=== PATIENT | male | born 1980 | race Caucasian/White ===

== ENCOUNTER 2018-11-29 16:40 | Emergency (ER) | payer OTHER ==
[~2018-11-29 16:40] MED LIST: AZIT250T6 PO; DIPH25CA58 PO; DULO30CA2 PO; LANS30CA66 PO; LISI-334 PO; LORA2TAB PO; OMEP20CA5 PO; OXYC1TAB8 PO; PRED50TA PO
[2018-11-29] MEDS ORDERED: IV NORMAL SALINE 1,000ML 1,000 ML IV SCH (17:36)
--- NOTE | 2018-11-29 17:43 | PHYS DOC ---
Past History Past Medical History: No Pertinent History (VIDAL RAMIREZ Jr., DO) Past Surgical History: No Surgical History (VIDAL RAMIREZ Jr., DO) Alcohol Use: None Drug Use: None (VIDAL RAMIREZ Jr., DO) Adult General Chief Complaint Chief Complaint: NAUSEA/VOMITING/DIARRHEA HPI HPI Patient is a 38-year-old male who presents with complaint of 4 day history of diarrhea and started having nausea and vomiting this morning. He states that he has not been able to keep anything down and has not eaten anything in the last 2 days. He also complains of upper abdominal pain that he rates at an 8 out of 10 and states that he has diffuse muscle cramps as well. He denies any fever. He indicates that he does not work outdoors in the heat. He states that nothing is improving his symptoms.[] (VIDAL RAMIREZ Jr., DO) Review of Systems Review of Systems Constitutional: Denies fever or chills [] Respiratory: Denies cough or shortness of breath [] Cardiovascular: No additional information not addressed in HPI [] GI: Complains of abdominal pain with vomiting and diarrhea [] Musculoskeletal: Complains of diffuse muscle cramps/pain [] Integument: Denies rash or skin lesions [] Neurologic: Denies headache, focal weakness or sensory changes [] All other systems were reviewed and found to be within normal limits, except as documented in this note. (VIDAL RAMIREZ Jr., DO) Current Medications Current Medications Current Medications Medications (Trade) Dose Ordered Sig/Heladio Start Time Stop Time Status Last Admin Dose Admin Fentanyl Citrate (Fentanyl 2ml Vial) 50 mcg PRN Q15MIN PRN 11/29/18 17:45 11/30/18 17:44 UNV Ondansetron HCl (Zofran) 4 mg 1X ONCE 11/29/18 17:45 11/29/18 17:46 UNV Sodium Chloride 1,000 ml @ 1,000 mls/hr Q1H 11/29/18 17:36 11/29/18 18:35 UNV (VIDAL RAMIREZ Jr., DO) Allergies Allergies Allergies Coded Allergies Type Severity Reaction Last Updated Verified Sulfa (Sulfonamide Antibiotics) Allergy Severe SWELLING 03/26/15 Yes codeine Allergy Severe SWELLING 03/26/15 Yes (VIDAL RAMIREZ Jr., DO) Physical Exam Physical Exam Constitutional: Well developed, well nourished, appears uncomfortable. [] HENT: Normocephalic, atraumatic, bilateral external ears normal, oropharynx moist, no oral exudates, nose normal. [] Eyes: PERRLA, EOMI, conjunctiva normal, no discharge. [] Neck: Normal range of motion, no tenderness, supple, no stridor. [] Cardiovascular:Heart rate regular rhythm, no murmur [] Lungs & Thorax: Bilateral breath sounds clear to auscultation [] Abdomen: Bowel sounds normal, soft, with right upper quadrant tenderness. [] Skin: Warm, dry, no erythema, no rash. [] Extremities: No tenderness, no cyanosis, no clubbing, ROM intact. [] Neurologic: Alert and oriented X 3, no focal deficits noted. [] (VIDAL RAMIREZ Jr., DO) Current Patient Data Vital Signs Vital Signs Date Time Temp Pulse Resp B/P (MAP) Pulse Ox O2 Delivery O2 Flow Rate FiO2 11/29/18 17:02 97.9 78 18 99 Room Air (VIDAL RAMIREZ Jr., DO) EKG EKG [] (VIDAL RAMIREZ Jr., DO) Radiology/Procedures Radiology/Procedures [] (VIDAL RAMIREZ Jr., DO) Radiology/[place] [address] IMAGING REPORT Signed PATIENT: JD BURCH ACCOUNT: [id number] : 1980 LOCATION: ER AGE: 38 SEX: M EXAM STATUS: REG ER ORD. PHYSICIAN: VIDAL RAMIREZ Jr., DO REASON: RUQ PAIN PROCEDURE: ABDOMEN LTD Right upper quadrant abdominal ultrasound History: Right upper quadrant pain x4 days. Comparison: None. Technique: Transabdominal ultrasound images are obtained. Findings: Pancreas head is homogeneous. Pancreas otherwise obscured due to overlying bowel gas. Liver is increased in echogenicity and there is decreased through-transmission. Right hepatic lobe measures 19.5 cm. Portal flow is hepatopedal. Gallbladder has an unremarkable appearance. Common bile duct caliber is normal measuring 2 mm in diameter. The right kidney measures 10.8 cm in length. There is no hydronephrosis. Cortical echotexture is normal. IVC is obscured due to overlying bowel gas and patient body habitus. IMPRESSION: 1. Hepatomegaly. Moderate fatty infiltration of the liver. 2. The gallbladder is normal. Electronically signed by: Miguel Hays MD (11/29/2018 7:15 PM) [facility] DICTATED AND SIGNED BY: MIGUEL HAYS MD DATE: 11/29/181914 CC: VIDAL RAMIREZ Jr. DO; TARIQ HARRISON MD; MARIAJOSE BELL FERTILIZER PROCESSING SUPERVISOR ~ [address] [address] IMAGING REPORT Signed PATIENT: JD BURCH ACCOUNT: [id number] : 1980 LOCATION: ER AGE: 38 SEX: M EXAM STATUS: REG ER ORD. PHYSICIAN: TARIQ HARRISON MD REASON: Dpmd576,75ml IV.Omni 240,30ml PO.Abd pain,N/V/D PROCEDURE: CT ABD PELV W/ORAL&IV CONTRAST Exam: CT abdomen and pelvis with contrast INDICATION: Abdominal pain TECHNIQUE: Sequential axial images through the abdomen and pelvis obtained following the administration of 75 mL of Omni 300 IV contrast. Sagittal and coronal reformatted images were reconstructed from the axial data and reviewed. Comparisons: None FINDINGS: Heart size is normal. No pericardial effusion. Visualized lung bases are clear. No pleural effusion. Diffuse decreased attenuation of the liver. Otherwise, liver, spleen, pancreas, gallbladder and adrenals are unremarkable. Kidneys demonstrate symmetric enhancement. No perinephric inflammation or hydronephrosis. No renal or ureteral calculi are identified. Bladder is distended and appears normal. Prostate is not enlarged. Large and small bowel are unremarkable. No obstruction. No free intra-abdominal air or fluid. Appendix is normal. Abdominal aorta has a normal course and caliber. Abdominal vasculature is patent. No suspicious osseous lesions or acute fractures. IMPRESSION: 1. No acute process identified within the abdomen or pelvis. 2. Diffuse hepatic steatosis. Exposure: One or more of the following in the visualized dose reduction techniques were utilized for this examination: 1. Automated exposure control 2. Adjustment of the MA and/or KV according to patient size 3. Use of iterative of reconstructive technique Electronically signed by: Nacho Pendleton MD (11/29/2018 11:06 PM) [facility] [place] DICTATED AND SIGNED BY: NACHO PENDLETON MD DATE: 11/29/182305 CC: TARIQ HARRISON MD; MARIAJOSE BELL F[employer]IL[employer]ER PROCESSING SUPERVISOR ~ Impressions: 1. N/V/Diarrhe- acute gastroenteritis 2. Fever 3. Mild Elevation of AST 42/Alkphos 121 4. Dehydration 5. Bronchitis (TARIQ HARRISON MD) Course & Med Decision Making Course & Med Decision Making Pertinent Labs and Imaging studies reviewed. (See chart for details) Patient moved to room upon arrival was evaluated by ER medical staff after which workup was initiated to include blood work and gallbladder ultrasound. Patient given IV fluids as well as pain and nausea medication. At this time, patient's workup is pending and patient is being signed out to Dr. Harrison at 6:00 PM. (VIDAL RAMIREZ Jr. DO) Course & Med Decision Making Re-exam some bilateral basilar crackles and rhonchi on right. Abd. mild generalized tenderness. Hyperactive bowel sounds. Pt. feel much better after liter of fluids. Requesting discharge. Decline further labs and radiographs at this time. Pt. to return if any concerns. Pt. stay on clear fluid diet. Doxycycline 100 bid. Zofran for nausea and vomiting. Follow up with primary. Tylenol and Ibuprofen for feve and discomfort. Return if any concerns. Just at discharge pt. stated his pain was coming back and just as severe as ever. Will obtain a CT of abd. No surgical pathology on CT. Pt. to follow up with primary. Take meds as directed. Clear fluid diet. Follow pending labs. Return if any concerns. (TARIQ HARRISON MD) Dragon Disclaimer Dragon Disclaimer This electronic medical record was generated, in whole or in part, using a voice recognition dictation system. (VIDAL RAMIREZ Jr. DO) Departure Departure: Disposition: 01 HOME/RESIDENCE PRIOR TO ADM Condition: STABLE Referrals: MARIAJOSE BELL FERTILIZER PROCESSING SUPERVISOR (PCP) Scripts Sucralfate (CARAFATE) 1 Gm Tablet 1 GM PO QID for gastritis for 30 Days, #120 TAB Prov: TARIQ HARRISON MD 11/30/18 Ranitidine Hcl (ZANTAC) 150 Mg Tablet 150 MG PO BID for gerd, gastritis, #120 TAB Prov: TARIQ HARRISON MD 11/30/18 Ibuprofen (IBUPROFEN) 400 Mg Tablet 400 MG PO QIDPRN PRN for fever and discomfort, #120 TAB Prov: TARIQ HARRISON MD 11/29/18 Ondansetron Hcl (ZOFRAN) 8 Mg Tablet 8 MG PO QIDPRN PRN for NAUSEA/VOMITING, #30 BOTTLE Prov: TARIQ HARRISON MD 11/29/18 Doxycycline Hyclate (DOXYCYCLINE HYCLATE) 100 Mg Tablet.dr 100 MG PO BID for fever for 14 Days, #28 TAB Prov: TARIQ HARRISON MD 11/29/18 Dragon Disclaimer This chart was dictated in whole or in part using Voice Recognition software in a busy, high-work load, and often noisy Emergency Department environment. It may contain unintended and wholly unrecognized errors or omissions. (TARIQ HARRISON MD) VIDAL RAMIREZ Jr. DO Nov 29, 2018 17:43 TARIQ HARRISON MD Nov 29, 2018 20:26
[2018-11-29 18:14] LABS: BASO # 0.1 x10^3/uL (0.0-0.2); BASO % 1 % (0-3); EOS # 0.2 x10^3/uL (0.0-0.7); EOS % 2 % (0-3); HEMOGLOBIN 14.9 g/dL (13.0-17.5); LYMPH # 2.4 x10^3/uL (1.0-4.8); LYMPH % 28 % (24-48); MEAN CORPUSCULAR HEMOGLOBIN 29 pg (25-35); MEAN CORPUSCULAR HGB CONC 33 g/dL (31-37); MEAN CORPUSCULAR VOLUME 87 fL (79-100); MONO # 0.8 x10^3/uL (0.0-1.1); MONO % 9 % (0-9); NEUT # 5.1 x10^3uL (1.8-7.7); NEUT % 60 % (31-73); PLATELET COUNT 263 x10^3/uL (140-400); RED BLOOD COUNT 5.15 x10^6/uL (4.30-5.70); RED CELL DISTRIBUTION WIDTH 13.1 % (11.5-14.5); WHITE BLOOD COUNT 8.5 x10^3/uL (4.0-11.0)
[2018-11-29] MEDS ORDERED: ONDANSETRON PF 4 MG/2 ML VIAL. IV ONE ×2 (18:15→21:15)
[2018-11-29 18:34] LABS: ALBUMIN 3.7 g/dL (3.4-5.0); ALBUMIN/GLOBULIN RATIO 0.8 (1.0-1.7); CALCIUM 9.5 mg/dL (8.5-10.1); CREATININE 1.1 mg/dL (0.7-1.3); GFR 74.9; POTASSIUM 4.2 mmol/L (3.5-5.1); TOTAL BILIRUBIN 0.3 mg/dL (0.2-1.0); TOTAL PROTEIN 8.1 g/dL (6.4-8.2)
[2018-11-29 19:10] VITALS: BP 102/62
[2018-11-29] MEDS ORDERED: DOXY100T9 PO (19:10)
[2018-11-29] MEDS ORDERED: ONDA8TAB9 PO (19:12)
[2018-11-29] MEDS ORDERED: IBUP400T18 PO (19:12)
--- NOTE | 2018-11-29 19:18 | RAD ---
Right upper quadrant abdominal ultrasound History: Right upper quadrant pain x4 days. Comparison: None. Technique: Transabdominal ultrasound images are obtained. Findings: Pancreas head is homogeneous. Pancreas otherwise obscured due to overlying bowel gas. Liver is increased in echogenicity and there is decreased through-transmission. Right hepatic lobe measures 19.5 cm. Portal flow is hepatopedal. Gallbladder has an unremarkable appearance. Common bile duct caliber is normal measuring 2 mm in diameter. The right kidney measures 10.8 cm in length. There is no hydronephrosis. Cortical echotexture is normal. IVC is obscured due to overlying bowel gas and patient body habitus. IMPRESSION: 1. Hepatomegaly. Moderate fatty infiltration of the liver. 2. The gallbladder is normal. Electronically signed by: Miguel Hays MD (11/29/2018 7:15 PM) [facility]
[2018-11-29 20:09] LABS: CLARITY,URINE CLEAR; COLOR,URINE AMBER
[2018-11-29 20:10] LABS: BACTERIA,URINE 0 /HPF (0-FEW); BILIRUBIN,URINE NEG (NEG); GLUCOSE,URINE NEG (NEG); NITRITE,URINE NEG (NEG); RBC,URINE OCC /HPF (0-2); SQUAMOUS EPITHELIAL CELL,UR FEW /LPF; UROBILINOGEN,URINE 0.2 mg/dL (0.2 mg/dL); WBC,URINE OCC /HPF (0-4)
[2018-11-29] MEDS ORDERED: MORPHINE SULFATE 10 MG/ML SYRINGE. SQ ONE ×2 (20:45→22:30)
[2018-11-29] MEDS ORDERED: IV RINGERS SOLUTION,LACTATED 1,000 ML IV ONE (20:45)
[2018-11-29] MEDS ORDERED: IOHEXOL 240 MG/ML 50ML VIAL. PO ONE (21:00)
[2018-11-29] MEDS ORDERED: IOHEXOL 300 MG/ML 75 ML VIAL. IV ONE (21:00)
[2018-11-29] MEDS ORDERED: CONTRAST GIVEN MC PRN (21:15)
--- NOTE | 2018-11-29 21:52 | RAD ---
Exam: Acute abdominal series INDICATION: Pain TECHNIQUE: Upright and supine views of the abdomen Comparisons: None FINDINGS: There is stool are seen throughout the colon to the level of the rectum in a nonobstructive bowel gas pattern. No free air. No suspicious masses or calcifications. Visualized osseous structures are unremarkable. IMPRESSION: Nonobstructive bowel gas pattern. Electronically signed by: Nacho Golden MD (11/29/2018 9:49 PM) [facility]
--- NOTE | 2018-11-29 23:09 | RAD ---
Exam: CT abdomen and pelvis with contrast INDICATION: Abdominal pain TECHNIQUE: Sequential axial images through the abdomen and pelvis obtained following the administration of 75 mL of Omni 300 IV contrast. Sagittal and coronal reformatted images were reconstructed from the axial data and reviewed. Comparisons: None FINDINGS: Heart size is normal. No pericardial effusion. Visualized lung bases are clear. No pleural effusion. Diffuse decreased attenuation of the liver. Otherwise, liver, spleen, pancreas, gallbladder and adrenals are unremarkable. Kidneys demonstrate symmetric enhancement. No perinephric inflammation or hydronephrosis. No renal or ureteral calculi are identified. Bladder is distended and appears normal. Prostate is not enlarged. Large and small bowel are unremarkable. No obstruction. No free intra-abdominal air or fluid. Appendix is normal. Abdominal aorta has a normal course and caliber. Abdominal vasculature is patent. No suspicious osseous lesions or acute fractures. IMPRESSION: 1. No acute process identified within the abdomen or pelvis. 2. Diffuse hepatic steatosis. Exposure: One or more of the following in the visualized dose reduction techniques were utilized for this examination: 1. Automated exposure control 2. Adjustment of the MA and/or KV according to patient size 3. Use of iterative of reconstructive technique Electronically signed by: Nacho Golden MD (11/29/2018 11:06 PM) [facility]
[2018-11-30] MEDS ORDERED: FAMOTIDINE 20 MG/2 ML VIAL IVP ONE (00:15)
[2018-11-30] MEDS ORDERED: SUCR1TAB35 PO (00:15)
[2018-11-30] MEDS ORDERED: RANI-376 PO (00:15)
== END 2018-11-30 00:18 | disposition home or self-care (01) ==
LOC: ER 16:40
DX: K52.9 Noninfective gastroenteritis and colitis, unspecified (principal); E86.0 Dehydration; J40 Bronchitis, not specified as acute or chronic; R74.8 Abnormal levels of other serum enzymes; Z88.2 Allergy status to sulfonamides; Z88.5 Allergy status to narcotic agent
CPT/HCPCS: 36415; 74022; 74177; 76705; 80053; 81001; 82150; 82550; 83690; 84484; 85025; 86705; 86709; 86803; 87340; 93005; 96361; 96372; 96374; 96375; 96376; 99285; J2270; J2405; J3010; J7120; Q9966; Q9967; J7030

== ENCOUNTER 2018-12-02 17:47 | Emergency (ER) | payer OTHER ==
[~2018-12-02] VITALS: Ht 167.6 cm; Wt 141.8 kg
[~2018-12-02 17:47] MED LIST changes: +DOXY100T9 PO; +IBUP400T18 PO; +ONDA8TAB9 PO; +RANI-376 PO; +SUCR1TAB35 PO
[2018-12-02] MEDS ORDERED: IV NORMAL SALINE 1,000ML 1,000 ML IV SCH (18:10)
[2018-12-02] MEDS ORDERED: ONDANSETRON PF 4 MG/2 ML VIAL. IV ONE (18:45)
[2018-12-02 18:54] LABS: BASO # 0.1 x10^3/uL (0.0-0.2); BASO % 1 % (0-3); EOS # 0.2 x10^3/uL (0.0-0.7); EOS % 2 % (0-3); HEMATOCRIT 41.5 % (39.0-53.0); HEMOGLOBIN 14.1 g/dL (13.0-17.5); LYMPH # 2.2 x10^3/uL (1.0-4.8); LYMPH % 24 % (24-48); MEAN CORPUSCULAR HEMOGLOBIN 30 pg (25-35); MEAN CORPUSCULAR HGB CONC 34 g/dL (31-37); MEAN CORPUSCULAR VOLUME 87 fL (79-100); MONO # 0.7 x10^3/uL (0.0-1.1); MONO % 8 % (0-9); NEUT % 65 % (31-73); PLATELET COUNT 224 x10^3/uL (140-400); RED BLOOD COUNT 4.75 x10^6/uL (4.30-5.70); RED CELL DISTRIBUTION WIDTH 13.2 % (11.5-14.5); WHITE BLOOD COUNT 9.2 x10^3/uL (4.0-11.0)
[2018-12-02 19:05] LABS: ALBUMIN 3.5 g/dL (3.4-5.0); ALBUMIN/GLOBULIN RATIO 0.9 (1.0-1.7); CALCIUM 9.4 mg/dL (8.5-10.1); CREATININE 1.3 mg/dL (0.7-1.3); GFR 61.8; TOTAL BILIRUBIN 0.2 mg/dL (0.2-1.0); TOTAL PROTEIN 7.6 g/dL (6.4-8.2)
[2018-12-02] MEDS ORDERED: IV NORMAL SALINE 1,000ML 1,000 ML IV ONE (19:45)
[2018-12-02] MEDS ORDERED: IOHEXOL 300 MG/ML 75 ML VIAL. IV ONE (19:45)
--- NOTE | 2018-12-02 20:35 | RAD ---
CT abdomen and pelvis with contrast PQRS statement: CT scans at this facility use dose reduction including either automated exposure control, iterative reconstructions, and /or weight based radiation dosing via mA and kV modification when appropriate to reduce radiation dose to as low as reasonably achievable. HISTORY: Upper abdominal pain, nausea and vomiting. TECHNIQUE: Helical CT imaging of the abdomen and pelvis was acquired with oral contrast and 100 mL Isovue-370 intravenous contrast. COMPARISON: CT abdomen and pelvis November 29, 2018. Abdomen findings: Chronic bilateral L5 spondylolysis with sclerotic bony margins. L5-S1 disc bulge. Hypodense liver likely steatosis with probable sparing at gallbladder fossa. Gallbladder, pancreas, spleen, adrenal glands and kidneys are unremarkable. Appendix is negative. No obstruction or inflammatory change of the GI tract. No abdominal fluid or adenopathy. Pelvis findings: Bladder, prostate, rectum and bones are unremarkable. IMPRESSION: No acute process. Appendix is negative. Electronically signed by: Kane Howard MD (12/02/2018 8:32 PM) [facility]
[2018-12-02 21:38] LABS: BACTERIA,URINE 0 /HPF (0-FEW); BILIRUBIN,URINE NEG (NEG); CLARITY,URINE CLEAR; COLOR,URINE YELLOW; GLUCOSE,URINE NEG (NEG); HYALINE CASTS, URINE OCC /HPF; NITRITE,URINE NEG (NEG); RBC,URINE 0 /HPF (0-2); SQUAMOUS EPITHELIAL CELL,UR OCC /LPF; UROBILINOGEN,URINE 1 mg/dL (0.2 mg/dL); WBC,URINE OCC /HPF (0-4)
[2018-12-02] MEDS ORDERED: ONDA4TAB7 PO (22:03)
[2018-12-02] MEDS ORDERED: DICY20TA3 PO (22:03)
--- NOTE | 2018-12-02 22:03 | PHYS DOC ---
Past History Past Medical History: Other Past Surgical History: Other Alcohol Use: None Drug Use: None Adult General Chief Complaint Chief Complaint: ABDOMINAL PAIN HPI HPI Patient is a 38-year-old male who presents with continued abdominal pain. Patient was seen here on Saturday for same complaint and had CT and ultrasound performed. Patient states that pain is getting worse and right now is localized in his upper abdomen. He reports to having some nausea and vomiting. He denies any diarrhea. He rates pain currently at an 8 out of 10. He denies any radiation of the pain.[] Review of Systems Review of Systems Constitutional: Denies fever or chills [] Respiratory: Denies cough or shortness of breath [] Cardiovascular: No additional information not addressed in HPI [] GI: Complains of abdominal pain with nausea and vomiting. Denies diarrhea [] Integument: Denies rash or skin lesions [] Neurologic: Denies headache, focal weakness or sensory changes [] All other systems were reviewed and found to be within normal limits, except as documented in this note. Current Medications Current Medications Current Medications Medications (Trade) Dose Ordered Sig/Heladio Start Time Stop Time Status Last Admin Dose Admin Fentanyl Citrate (Fentanyl 2ml Vial) 50 mcg PRN Q15MIN PRN 12/02/18 18:15 12/03/18 18:14 12/02/18 19:49 50 MCG Iohexol (Omnipaque 300 Mg/ml) 75 ml 1X ONCE 12/02/18 19:45 12/02/18 19:46 DC 12/02/18 20:13 75 ML Ondansetron HCl (Zofran) 4 mg 1X ONCE 12/02/18 18:45 12/02/18 18:46 DC 12/02/18 18:48 4 MG Sodium Chloride 1,000 ml @ 1,000 mls/hr 1X ONCE 12/02/18 19:45 12/02/18 20:44 DC 12/02/18 19:49 1,000 MLS/HR Allergies Allergies Allergies Coded Allergies Type Severity Reaction Last Updated Verified Sulfa (Sulfonamide Antibiotics) Allergy Severe SWELLING 12/02/18 Yes codeine Allergy Severe SWELLING 12/02/18 Yes peanut Allergy Unknown 12/02/18 Yes Physical Exam Physical Exam Constitutional: Well developed, well nourished, no acute distress, non-toxic appearance. [] HENT: Normocephalic, atraumatic, bilateral external ears normal, oropharynx moist, no oral exudates, nose normal. [] Eyes: PERRLA, EOMI, conjunctiva normal, no discharge. [] Neck: Normal range of motion, no tenderness, supple, no stridor. [] Cardiovascular:Heart rate regular rhythm [] Lungs & Thorax: Bilateral breath sounds clear to auscultation [] Abdomen: Bowel sounds normal, soft, with epigastric tenderness. [] Skin: Warm, dry, no erythema, no rash. [] Extremities: No tenderness, no cyanosis, no clubbing, ROM intact. [] Neurologic: Alert and oriented X 3, no focal deficits noted. [] Current Patient Data Vital Signs Vital Signs Date Time Temp Pulse Resp B/P (MAP) Pulse Ox O2 Delivery O2 Flow Rate FiO2 12/02/18 20:50 63 16 122/73 (89) 97 Room Air 12/02/18 17:53 97.9 Lab Results Laboratory Tests Test 12/02/18 18:30 12/02/18 21:05 White Blood Count 9.2 x10^3/uL (4.0-11.0) Red Blood Count 4.75 x10^6/uL (4.30-5.70) Hemoglobin 14.1 g/dL (13.0-17.5) Hematocrit 41.5 % (39.0-53.0) Mean Corpuscular Volume 87 fL (79-100) Mean Corpuscular Hemoglobin 30 pg (25-35) Mean Corpuscular Hemoglobin Concent 34 g/dL (31-37) Red Cell Distribution Width 13.2 % (11.5-14.5) Platelet Count 224 x10^3/uL (140-400) Neutrophils (%) (Auto) 65 % (31-73) Lymphocytes (%) (Auto) 24 % (24-48) Monocytes (%) (Auto) 8 % (0-9) Eosinophils (%) (Auto) 2 % (0-3) Basophils (%) (Auto) 1 % (0-3) Neutrophils # (Auto) 6.0 x10^3uL (1.8-7.7) Lymphocytes # (Auto) 2.2 x10^3/uL (1.0-4.8) Monocytes # (Auto) 0.7 x10^3/uL (0.0-1.1) Eosinophils # (Auto) 0.2 x10^3/uL (0.0-0.7) Basophils # (Auto) 0.1 x10^3/uL (0.0-0.2) Sodium Level 138 mmol/L (136-145) Potassium Level 4.0 mmol/L (3.5-5.1) Chloride Level 102 mmol/L (98-107) Carbon Dioxide Level 27 mmol/L (21-32) Anion Gap 9 (6-14) Blood Urea Nitrogen 9 mg/dL (8-26) Creatinine 1.3 mg/dL (0.7-1.3) Estimated GFR (Cockcroft-Gault) 61.8 BUN/Creatinine Ratio 7 (6-20) Glucose Level 148 mg/dL (70-99) H Calcium Level 9.4 mg/dL (8.5-10.1) Total Bilirubin 0.2 mg/dL (0.2-1.0) Aspartate Amino Transferase (AST) 30 U/L (15-37) Alanine Aminotransferase (ALT) 46 U/L (16-63) Alkaline Phosphatase 112 U/L (46-116) Creatine Kinase 127 U/L (39-308) Total Protein 7.6 g/dL (6.4-8.2) Albumin 3.5 g/dL (3.4-5.0) Albumin/Globulin Ratio 0.9 (1.0-1.7) L Lipase 127 U/L (73-393) Urine Collection Type Unknown Urine Color Yellow Urine Clarity Clear Urine pH 6.0 Urine Specific [place] 1.015 Urine Protein 30 mg/dl (NEG-TRACE) Urine Glucose (UA) Neg mg/dL (NEG) Urine Ketones (Stick) Neg mg/dL (NEG) Urine Blood Trace (NEG) Urine Nitrite Neg (NEG) Urine Bilirubin Neg (NEG) Urine Urobilinogen Dipstick 1 mg/dL (0.2 mg/dL) Urine Leukocyte Esterase Neg (NEG) Urine RBC 0 /HPF (0-2) Urine WBC Occ /HPF (0-4) Urine Squamous Epithelial Cells Occ /LPF Urine Bacteria 0 /HPF (0-FEW) Urine Hyaline Casts Occ /HPF Urine Mucus Mod /LPF EKG EKG [] Radiology/Procedures Radiology/Procedures [] Impressions: PROCEDURE: CT ABD PELV W/ IV CONTRST ONLY CT abdomen and pelvis with contrast PQRS statement: CT scans at this facility use dose reduction including either automated exposure control, iterative reconstructions, and /or weight based radiation dosing via mA and kV modification when appropriate to reduce radiation dose to as low as reasonably achievable. HISTORY: Upper abdominal pain, nausea and vomiting. TECHNIQUE: Helical CT imaging of the abdomen and pelvis was acquired with oral contrast and 100 mL Isovue-370 intravenous contrast. COMPARISON: CT abdomen and pelvis November 29, 2018. Abdomen findings: Chronic bilateral L5 spondylolysis with sclerotic bony margins. L5-S1 disc bulge. Hypodense liver likely steatosis with probable sparing at gallbladder fossa. Gallbladder, pancreas, spleen, adrenal glands and kidneys are unremarkable. Appendix is negative. No obstruction or inflammatory change of the GI tract. No abdominal fluid or adenopathy. Pelvis findings: Bladder, prostate, rectum and bones are unremarkable. IMPRESSION: No acute process. Appendix is negative. Electronically signed by: Kane Howard MD (12/02/2018 8:32 PM) [facility] Course & Med Decision Making Course & Med Decision Making Pertinent Labs and Imaging studies reviewed. (See chart for details) [] Dragon Disclaimer Dragon Disclaimer This electronic medical record was generated, in whole or in part, using a voice recognition dictation system. Departure Departure: Impression: Primary Impression: Abdominal pain Disposition: 01 HOME, SELF-CARE Condition: STABLE Referrals: MARIAJOSE BELL AWAKE OVERNIGHT MONITOR (PCP) Patient Instructions: Abdominal Pain Scripts Ondansetron Hcl (ZOFRAN) 4 Mg Tablet 4 MG PO Q6HRS PRN for NAUSEA, #12 TAB Prov: VIDAL RAMIREZ Jr. DO 12/02/18 Dicyclomine Hcl (DICYCLOMINE HCL) 20 Mg Tablet 1 TAB PO TID PRN for ABDOMINAL PAIN, #15 TAB Prov: VIDAL RAMIREZ Jr. DO 12/02/18 Problem Qualifiers Primary Impression: Abdominal pain Abdominal location: upper abdomen, unspecified Qualified Codes: R10.10 - Upper abdominal pain, unspecified VIDAL RAMIREZ Jr. DO Dec 02, 2018 22:03
[2018-12-02 22:15] VITALS: BP 118/57
== END 2018-12-02 22:16 | disposition home or self-care (01) ==
LOC: ER 17:47
DX: R10.10 Upper abdominal pain, unspecified (principal); R10.13 Epigastric pain; R11.2 Nausea with vomiting, unspecified; Z88.2 Allergy status to sulfonamides; Z88.5 Allergy status to narcotic agent; Z91.010 Allergy to peanuts
CPT/HCPCS: 36415; 74177; 80053; 81001; 82550; 83690; 85025; 96361; 96374; 96375; 99285; J2405; J3010; Q9967; J7030

== ENCOUNTER 2019-01-21 20:39 | Emergency (ER) | payer OTHER ==
[~2019-01-21] VITALS: Ht 167.6 cm; Wt 140.2 kg
[~2019-01-21 20:39] MED LIST changes: +DICY20TA3 PO; +DOXY-96 PO; -DOXY100T9 PO; +ONDA4TAB7 PO
--- NOTE | 2019-01-21 20:44 | ED.ADGEN ---
Past History Past Medical History: Other Past Surgical History: Other Alcohol Use: None Drug Use: None Adult General Chief Complaint Chief Complaint "I had so much diarrhea... 4 days. Now my stomach is cramping and I think I am dehydrated some not urinating..." HPI HPI Patient is a 38 year old male who presents with above hx and complaints abdomen pain and diarrhea. Patient's had at least 4 stools per day. They have been watery. He recently turned dark was taking of Pepto-Bismol to control the diarrhea. No recent travel. No specific ill contacts. No exotic pets. No handling of to reptiles. No ill contacts. Not been on antibiotics recently. No history of travel. Questionable bad food at Saturday 4 days ago. Review of Systems Review of Systems Constitutional: Denies fever or chills [] Eyes: Denies change in visual acuity, redness, or eye pain [] HENT: Denies nasal congestion or sore throat [] Respiratory: Denies cough or shortness of breath [] Cardiovascular: No additional information not addressed in HPI [] GI: Complains of generalized abdominal pain, nausea, watery diarrhea [] : Denies dysuria or hematuria [] Musculoskeletal: Denies back pain or joint pain [] Integument: Denies rash or skin lesions [] Neurologic: Denies headache, focal weakness or sensory changes [] Endocrine: Denies polyuria or polydipsia [] All other systems were reviewed and found to be within normal limits, except as documented in this note. Family History Family History Aunt has Crohn's Current Medications Current Medications Current Medications Medications (Trade) Dose Ordered Sig/Heladio Start Time Stop Time Status Last Admin Dose Admin Famotidine (Pepcid Vial) 20 mg 1X ONCE 01/21/19 21:30 01/21/19 21:33 DC 01/21/19 21:30 20 MG Ketorolac Tromethamine (Toradol 30mg Vial) 30 mg 1X ONCE 01/21/19 21:30 01/21/19 21:33 DC 01/21/19 21:45 30 MG Lactated Ringer's 1,000 ml @ 0 mls/hr 1X ONCE 01/22/19 00:30 01/22/19 00:15 DC 01/21/19 23:29 1,000 MLS/HR Morphine Sulfate (Morphine 10mg Syringe) 10 mg 1X ONCE 01/21/19 22:45 01/21/19 22:56 DC 01/21/19 23:01 10 MG Ondansetron HCl (Zofran) 8 mg 1X ONCE 01/21/19 21:30 01/21/19 21:33 DC 01/21/19 21:45 8 MG Allergies Allergies Allergies Coded Allergies Type Severity Reaction Last Updated Verified Sulfa (Sulfonamide Antibiotics) Allergy Severe SWELLING 12/02/18 Yes codeine Allergy Severe SWELLING 12/02/18 Yes peanut Allergy Unknown 12/02/18 Yes Physical Exam Physical Exam Constitutional: Moderate acute distress, non-toxic appearance. [] HENT: Normocephalic, atraumatic, bilateral external ears normal, oropharynx moist, no oral exudates, nose normal. [] Eyes: PERRLA, EOMI, conjunctiva normal, no discharge. [] Neck: Normal range of motion, no tenderness, supple, no stridor. [] Cardiovascular:Heart rate regular rhythm, no murmur [] Lungs & Thorax: Bilateral breath sounds clear to auscultation [] Abdomen: Bowel sounds hyperactive, soft, generalized tenderness, no masses, no pulsatile masses. [] No focal areas on rebound. Morbidly obese Skin: Warm, dry, no erythema, no rash. [] Back: No tenderness, no CVA tenderness. [] Extremities: No tenderness, no cyanosis, no clubbing, ROM intact, no edema. [] No psoas sign. Neurologic: Alert and oriented X 3, normal motor function, normal sensory function, no focal deficits noted. [] Psychologic: Affect anxious, judgement normal, mood normal. [] Current Patient Data Vital Signs Vital Signs Date Time Temp Pulse Resp B/P (MAP) Pulse Ox O2 Delivery O2 Flow Rate FiO2 01/21/19 23:01 18 96 Room Air 01/21/19 20:52 97.7 79 Lab Results Laboratory Tests Test 01/21/19 21:00 01/21/19 23:15 White Blood Count 8.5 x10^3/uL (4.0-11.0) Red Blood Count 4.75 x10^6/uL (4.30-5.70) Hemoglobin 14.0 g/dL (13.0-17.5) Hematocrit 41.9 % (39.0-53.0) Mean Corpuscular Volume 88 fL (79-100) Mean Corpuscular Hemoglobin 30 pg (25-35) Mean Corpuscular Hemoglobin Concent 33 g/dL (31-37) Red Cell Distribution Width 13.3 % (11.5-14.5) Platelet Count 223 x10^3/uL (140-400) Neutrophils (%) (Auto) 70 % (31-73) Lymphocytes (%) (Auto) 22 % (24-48) L Monocytes (%) (Auto) 6 % (0-9) Eosinophils (%) (Auto) 3 % (0-3) Basophils (%) (Auto) 0 % (0-3) Neutrophils # (Auto) 5.9 x10^3uL (1.8-7.7) Lymphocytes # (Auto) 1.9 x10^3/uL (1.0-4.8) Monocytes # (Auto) 0.5 x10^3/uL (0.0-1.1) Eosinophils # (Auto) 0.2 x10^3/uL (0.0-0.7) Basophils # (Auto) 0.0 x10^3/uL (0.0-0.2) Prothrombin Time 10.4 SEC (9.4-11.4) Prothrombin Time INR 1.0 (0.9-1.1) Activated Partial Thromboplast Time 31 SEC (23-33) Sodium Level 138 mmol/L (136-145) Potassium Level 3.9 mmol/L (3.5-5.1) Chloride Level 101 mmol/L (98-107) Carbon Dioxide Level 29 mmol/L (21-32) Anion Gap 8 (6-14) Blood Urea Nitrogen 10 mg/dL (8-26) Creatinine 1.1 mg/dL (0.7-1.3) Estimated GFR (Cockcroft-Gault) 74.9 Glucose Level 213 mg/dL (70-99) H Calcium Level 9.0 mg/dL (8.5-10.1) Total Bilirubin 0.3 mg/dL (0.2-1.0) Direct Bilirubin 0.1 mg/dL (0.0-0.2) Aspartate Amino Transferase (AST) 29 U/L (15-37) Alanine Aminotransferase (ALT) 42 U/L (16-63) Alkaline Phosphatase 111 U/L (46-116) Creatine Kinase 93 U/L (39-308) Total Protein 7.5 g/dL (6.4-8.2) Albumin 3.3 g/dL (3.4-5.0) L Amylase Level 35 U/L (25-115) Lipase 108 U/L (73-393) Urine Collection Type Unknown Urine Color Yellow Urine Clarity Clear Urine pH 5.5 Urine Specific [place] 1.025 Urine Protein Neg (NEG-TRACE) Urine Glucose (UA) Neg mg/dL (NEG) Urine Ketones (Stick) Neg mg/dL (NEG) Urine Blood Neg (NEG) Urine Nitrite Neg (NEG) Urine Bilirubin Neg (NEG) Urine Urobilinogen Dipstick 1 mg/dL (0.2 mg/dL) Urine Leukocyte Esterase Neg (NEG) Urine RBC 0 /HPF (0-2) Urine WBC Occ /HPF (0-4) Urine Squamous Epithelial Cells None /LPF Urine Bacteria 0 /HPF (0-FEW) EKG EKG [] Radiology/Procedures Radiology/Procedures [][address] [address] IMAGING REPORT Signed PATIENT: JD BURCH ACCOUNT: [id number] : 1980 LOCATION: ER AGE: 38 SEX: M EXAM STATUS: REG ER ORD. PHYSICIAN: TARIQ CALVILLO MD REASON: Abdomen pain PROCEDURE: ACUTE ABDOMEN SERIES Acute Abdominal Series: Technique: PA view of the chest and supine and upright views of the abdomen were obtained. History: Pain. Comparison: None. Findings: The lungs and pleural margins are clear. The bowel gas pattern appears normal. There is no free air. Impression: Radiographically normal acute abdominal series. Electronically signed by: Ricci Roberts III, MD (01/21/2019 10:56 PM) [facility] DICTATED AND SIGNED BY: RICCI ROBERTS III, MD DATE: 01/21/19 0678 CC: TARIQ CALVILLO MD; MARIAJOSE BELL NP ~ Course & Med Decision Making Course & Med Decision Making Pertinent Labs and Imaging studies reviewed. (See chart for details). Clear fluid diet only. No solid no milk products. Must remain on a clear fluid diet for 48 hours. Follow-up primary care. Return if any concerns. Zofran for nausea and vomiting. Vicoprofen for marked discomfort. Take Tylenol and ibu profen. Return for reexam if no improvement. Follow-up primary care. [] Final Impression Final Impression 1. Viral Syndrome 2. Diarrhea 3. Abdomen Pain 4. DM glucose []= 213 5. Dehydration Dragon Disclaimer Dragon Disclaimer This electronic medical record was generated, in whole or in part, using a voice recognition dictation system. Dragon Disclaimer This chart was dictated in whole or in part using Voice Recognition software in a busy, high-work load, and often noisy Emergency Department environment. It may contain unintended and wholly unrecognized errors or omissions. TARIQ CALVILLO MD Jan 21, 2019 20:44
[2019-01-21] MEDS: FAMOTIDINE 20 MG/2 ML VIAL IVP ONE (21:30)
[2019-01-21 21:32] LABS: BASO % 0 % (0-3); EOS # 0.2 x10^3/uL (0.0-0.7); EOS % 3 % (0-3); HEMATOCRIT 41.9 % (39.0-53.0); LYMPH # 1.9 x10^3/uL (1.0-4.8); LYMPH % 22 % (24-48); MEAN CORPUSCULAR HEMOGLOBIN 30 pg (25-35); MEAN CORPUSCULAR HGB CONC 33 g/dL (31-37); MEAN CORPUSCULAR VOLUME 88 fL (79-100); MONO # 0.5 x10^3/uL (0.0-1.1); MONO % 6 % (0-9); NEUT # 5.9 x10^3uL (1.8-7.7); NEUT % 70 % (31-73); PLATELET COUNT 223 x10^3/uL (140-400); RED BLOOD COUNT 4.75 x10^6/uL (4.30-5.70); RED CELL DISTRIBUTION WIDTH 13.3 % (11.5-14.5); WHITE BLOOD COUNT 8.5 x10^3/uL (4.0-11.0)
[2019-01-21] MEDS: MORPHINE SULFATE 10 MG/ML SYRINGE. SQ ONE ×2 (21:44→23:01)
[2019-01-21] MEDS: IV RINGERS SOLUTION,LACTATED 1,000 ML IV SCH (21:44)
[2019-01-21] MEDS: KETOROLAC 30 MG/ML VIAL. IV ONE (21:45)
[2019-01-21] MEDS: ONDANSETRON PF 4 MG/2 ML VIAL. IVP ONE (21:45)
[2019-01-21 21:46] LABS: ALBUMIN 3.3 g/dL (3.4-5.0); CREATININE 1.1 mg/dL (0.7-1.3); DIRECT BILIRUBIN 0.1 mg/dL (0.0-0.2); GFR 74.9; POTASSIUM 3.9 mmol/L (3.5-5.1); TOTAL BILIRUBIN 0.3 mg/dL (0.2-1.0); TOTAL PROTEIN 7.5 g/dL (6.4-8.2)
--- NOTE | 2019-01-21 22:59 | RAD ---
Acute Abdominal Series: Technique: PA view of the chest and supine and upright views of the abdomen were obtained. History: Pain. Comparison: None. Findings: The lungs and pleural margins are clear. The bowel gas pattern appears normal. There is no free air. Impression: Radiographically normal acute abdominal series. Electronically signed by: Madhav Bruce III, MD (01/21/2019 10:56 PM) [facility]
[2019-01-21] MEDS ORDERED: ONDA8TAB9 PO (23:16)
[2019-01-21] MEDS ORDERED: HYDR-1179 PO (23:16)
[2019-01-21] MEDS: IV RINGERS SOLUTION,LACTATED 1,000 ML IV ONE (23:29)
[2019-01-22 00:02] VITALS: BP 126/82
[2019-01-22 00:08] LABS: BACTERIA,URINE 0 /HPF (0-FEW); BILIRUBIN,URINE NEG (NEG); CLARITY,URINE CLEAR; COLOR,URINE YELLOW; GLUCOSE,URINE NEG (NEG); NITRITE,URINE NEG (NEG); RBC,URINE 0 /HPF (0-2); UROBILINOGEN,URINE 1 mg/dL (0.2 mg/dL); WBC,URINE OCC /HPF (0-4)
[2019-01-22 23:06] LABS: HEMOGLOBIN A1C 6.8 % (4.8-5.6)
== END 2019-01-22 00:10 | disposition home or self-care (01) ==
LOC: ER 20:39
DX: B34.9 Viral infection, unspecified (principal); R19.7 Diarrhea, unspecified; E86.0 Dehydration; E11.9 Type 2 diabetes mellitus without complications; E66.01 Morbid (severe) obesity due to excess calories; Z68.42 Body mass index [BMI] 45.0-49.9, adult; Z88.2 Allergy status to sulfonamides; Z88.5 Allergy status to narcotic agent; Z91.010 Allergy to peanuts
CPT/HCPCS: 36415; 74022; 80048; 80061; 80076; 81001; 82150; 82550; 83036; 83690; 85025; 85610; 85730; 96361; 96372; 96374; 96375; 99285; J1885; J2270; J2405; J3490; J7120

== ENCOUNTER 2019-02-15 23:55 | Emergency (ER) | payer OTHER ==
[~2019-02-15] VITALS: Ht 167.6 cm; Wt 120.6 kg
[~2019-02-15 23:55] MED LIST changes: +HYDR-1179 PO
--- NOTE | 2019-02-16 00:04 | ED.ADGEN ---
Past History Past Medical History: Anxiety, Diabetes, GERD, Hypertension, Other Past Surgical History: Other Alcohol Use: None Drug Use: None Adult General Chief Complaint Chief Complaint ".. I am having really severe abdomen pain..." HPI HPI Patient is a 38 year old male who presents with above hx and complaints of severe epigastric and upper abdomen pain. Patient reportedly having nausea and vomiting. Patient has history of GERD. No history of trauma. No specific ill contacts. Patient has had borderline diabetes. No history of prior cardiac problems. No history of tarry or dark stools. No history of bad food intake. No history of specific ill contacts or travel. No history immunosuppression. Patient normally follows with Dr. Germain. Patient has been having constant epigastric abdomen discomfort last 5 days. Patient does have a history of morbid obesity and clinical history of sleep apnea. Patient reportedly ate same meals that his , however she did not get sick. Review of Systems Review of Systems Constitutional: Denies fever or chills [] Eyes: Denies change in visual acuity, redness, or eye pain [] HENT: Denies nasal congestion or sore throat [] Respiratory: Denies cough or shortness of breath [] Cardiovascular: No additional information not addressed in HPI [] GI: Plaints of severe epigastric and upper abdominal pain, nausea, vomiting. Patient denies any history of, bloody stools or diarrhea . The e patient]did have diarrhea 2 weeks ago. : Denies dysuria or hematuria [] Musculoskeletal: Denies back pain or joint pain [] Integument: Denies rash or skin lesions [] Neurologic: Denies headache, focal weakness or sensory changes [] Endocrine: Denies polyuria or polydipsia [] All other systems were reviewed and found to be within normal limits, except as documented in this note. Family History Family History Hypertension diabetes Current Medications Current Medications Current Medications Medications (Trade) Dose Ordered Sig/Heladio Start Time Stop Time Status Last Admin Dose Admin Famotidine (Pepcid Vial) 20 mg 1X ONCE 02/16/19 00:30 02/16/19 00:31 DC 02/16/19 00:47 20 MG Info (Do NOT chart on this entry -- for MONITORING) 1 each PRN DAILY PRN 02/16/19 02:15 02/16/19 07:00 DC Iohexol (Omnipaque 240 Mg/ml) 30 ml 1X ONCE 02/16/19 02:15 02/16/19 02:16 DC 02/16/19 03:39 30 ML Iohexol (Omnipaque 300 Mg/ml) 75 ml 1X ONCE 02/16/19 02:15 02/16/19 02:16 DC 02/16/19 03:40 75 ML Ketorolac Tromethamine (Toradol 30mg Vial) 30 mg 1X ONCE 02/16/19 04:00 02/16/19 04:01 DC 02/16/19 03:58 30 MG Lactated Ringer's 1,000 ml @ 1,000 mls/hr Q1H 02/16/19 00:30 02/16/19 01:29 DC 02/16/19 00:48 1,000 MLS/HR Magnesium Hydroxide (Milk Of Magnesia) 2,400 mg 1X ONCE 02/16/19 06:00 02/16/19 06:01 DC 02/16/19 05:55 2,400 MG Morphine Sulfate (Morphine 10mg Syringe) 10 mg 1X ONCE 02/16/19 02:00 02/16/19 02:01 DC 02/16/19 01:51 10 MG Ondansetron HCl (Zofran) 8 mg 1X ONCE 02/16/19 00:30 02/16/19 00:31 DC 02/16/19 00:47 8 MG Allergies Allergies Allergies Coded Allergies Type Severity Reaction Last Updated Verified Sulfa (Sulfonamide Antibiotics) Allergy Severe SWELLING 12/02/18 Yes codeine Allergy Severe SWELLING 12/02/18 Yes peanut Allergy Unknown 12/02/18 Yes Physical Exam Physical Exam Constitutional: in acute distress, non-toxic appearance. [] HENT: Normocephalic, atraumatic, bilateral external ears normal, oropharynx moist, no oral exudates, nose normal. [] Eyes: PERRLA, EOMI, conjunctiva normal, no discharge. [] Neck: Normal range of motion, no tenderness, supple, no stridor. [] More than 17 inches circumference Cardiovascular:Heart rate regular rhythm, no murmur [], PMI slightly to the left Lungs & Thorax: Bilateral breath sounds equal at apex on auscultation [] Abdomen: Bowel sounds hyperactive,, soft, right upper quadrant and epigastric tenderness, distended, no masses, no pulsatile masses. Rebound to right upper quadrant. Patient declines rectal. Morbidly obese. Skin: Warm, dry, no erythema, no rash. [] Back: No tenderness, no CVA tenderness. [] Extremities: No tenderness, no cyanosis, no clubbing, ROM intact, bilateral ankle edema. [] No true psoas sign. No cording noted. Neurologic: Alert and oriented X 3, normal motor function, normal sensory function, no focal deficits noted. [] Psychologic: Affect anxious, judgement normal, mood normal. [] Current Patient Data Vital Signs Vital Signs Date Time Temp Pulse Resp B/P (MAP) Pulse Ox O2 Delivery O2 Flow Rate FiO2 02/16/19 01:51 18 95 02/16/19 00:47 Room Air 02/16/19 00:00 97.5 70 Lab Results Laboratory Tests Test 02/16/19 00:20 02/16/19 00:35 02/16/19 05:35 White Blood Count 7.1 x10^3/uL (4.0-11.0) Red Blood Count 4.87 x10^6/uL (4.30-5.70) Hemoglobin 14.5 g/dL (13.0-17.5) Hematocrit 42.9 % (39.0-53.0) Mean Corpuscular Volume 88 fL (79-100) Mean Corpuscular Hemoglobin 30 pg (25-35) Mean Corpuscular Hemoglobin Concent 34 g/dL (31-37) Red Cell Distribution Width 13.4 % (11.5-14.5) Platelet Count 241 x10^3/uL (140-400) Neutrophils (%) (Auto) 57 % (31-73) Lymphocytes (%) (Auto) 28 % (24-48) Monocytes (%) (Auto) 9 % (0-9) Eosinophils (%) (Auto) 5 % (0-3) H Basophils (%) (Auto) 1 % (0-3) Neutrophils # (Auto) 4.1 x10^3uL (1.8-7.7) Lymphocytes # (Auto) 2.0 x10^3/uL (1.0-4.8) Monocytes # (Auto) 0.7 x10^3/uL (0.0-1.1) Eosinophils # (Auto) 0.4 x10^3/uL (0.0-0.7) Basophils # (Auto) 0.0 x10^3/uL (0.0-0.2) Prothrombin Time 9.6 SEC (9.4-11.4) Prothrombin Time INR 0.9 (0.9-1.1) Activated Partial Thromboplast Time 29 SEC (23-33) Sodium Level 141 mmol/L (136-145) Potassium Level 4.3 mmol/L (3.5-5.1) Chloride Level 105 mmol/L (98-107) Carbon Dioxide Level 28 mmol/L (21-32) Anion Gap 8 (6-14) Blood Urea Nitrogen 9 mg/dL (8-26) Creatinine 1.0 mg/dL (0.7-1.3) Estimated GFR (Cockcroft-Gault) 83.6 Glucose Level 152 mg/dL (70-99) H Calcium Level 8.8 mg/dL (8.5-10.1) Total Bilirubin 0.2 mg/dL (0.2-1.0) Direct Bilirubin 0.1 mg/dL (0.0-0.2) Aspartate Amino Transferase (AST) 35 U/L (15-37) Alanine Aminotransferase (ALT) 58 U/L (16-63) Alkaline Phosphatase 112 U/L (46-116) Troponin I Quantitative < 0.017 ng/mL (0-0.055) < 0.017 ng/mL (0-0.055) Total Protein 7.3 g/dL (6.4-8.2) Albumin 3.4 g/dL (3.4-5.0) Amylase Level 45 U/L (25-115) Lipase 87 U/L (73-393) Ethyl Alcohol Level < 10 mg/dL (0-10) Urine Collection Type Unknown Urine Color Yellow Urine Clarity Clear Urine pH 5.5 Urine Specific [place] >=1.030 Urine Protein Neg (NEG-TRACE) Urine Glucose (UA) Neg mg/dL (NEG) Urine Ketones (Stick) Trace mg/dL (NEG) Urine Blood Trace (NEG) Urine Nitrite Neg (NEG) Urine Bilirubin Neg (NEG) Urine Urobilinogen Dipstick 0.2 mg/dL (0.2 mg/dL) Urine Leukocyte Esterase Neg (NEG) Urine RBC 1-2 /HPF (0-2) Urine WBC Occ /HPF (0-4) Urine Squamous Epithelial Cells Occ /LPF Urine Bacteria 0 /HPF (0-FEW) Urine Opiates Screen Pos (NEG) Urine Methadone Screen Neg (NEG) Urine Barbiturates Neg (NEG) Urine Phencyclidine Screen Neg (NEG) Urine Amphetamine/Methamphetamine Neg (NEG) Urine Benzodiazepines Screen Neg (NEG) Urine Cocaine Screen Neg (NEG) Urine Cannabinoids Screen Neg (NEG) Urine Ethyl Alcohol Neg (NEG) Influenza Type A (Rapid) Negative (NEGATIVE) Influenza Type B (Rapid) Negative (NEGATIVE) EKG EKG My interpretation EKG at oh 45 minutes- shows a sinus rhythm at 78 bpm. There is some nonspecific contour changes anterior lateral leads. But no findings acute STEMI of contralateral changes. There is some wavering baseline.[] Repeat EKG at 0 545- my interpretation shows a sinus rhythm at 79 bpm. There is nonspecific contour abnormalities anterior septal region. But this is no significant interval change from prior EKG. There is a slight change in lead placement due to patient removing stickers. Repeat troponin was normal and no change 0.017 Radiology/Procedures Radiology/Procedures [][address] [address] IMAGING REPORT Signed PATIENT: JD BURCH ACCOUNT: [id number] : 1980 LOCATION: ER AGE: 38 SEX: M EXAM STATUS: REG ER ORD. PHYSICIAN: TARIQ CALVILLO MD REASON: pain, LUQ, N/V/D, OMNI 300, 75ml, OMNI 240, 30ml PROCEDURE: CT ABD PELV W/ORAL&IV CONTRAST CT SCAN OF THE ABDOMEN AND PELVIS WITH IV CONTRAST. History: Left upper quadrant pain and nausea and vomiting and diarrhea Comparison:None. Procedure: Contiguous axial images of the abdomen and pelvis were performed after the administration of 75 cc of Omni 240 IV contrast. Oral contrast: Yes. Findings: Liver: Hypoattenuating Spleen: Unremarkable Pancreas: Unremarkable Adrenal Glands: Unremarkable Kidneys: Unremarkable There is no mass or lymphadenopathy. There is no free air. There is no free fluid. The urinary bladder appears normal. The appendix is normal. Impression: Fatty infiltration of the liver. PQRS Compliance Statement: One or more of the following individualized dose reduction techniques were utilized for this examination: 1. Automated exposure control 2. Adjustment of the mA and/or kV according to patient size 3. Use of iterative reconstruction technique Electronically signed by: Ricci Roberts III, MD (02/16/2019 4:41 AM) [facility] DICTATED AND SIGNED BY: RICCI ROBERTS III, MD DATE: 02/16/19 0441 CC: TARIQ CALVILLO MD; PCP,UNKNOWN ~ Course & Med Decision Making Course & Med Decision Making Pertinent Labs and Imaging studies reviewed. (See chart for details) Patient at 06:00 reports marked relief in symptoms. Requesting discharge Patient to remain on a clear fluid diet for the next 2 days. No solids or milk products. Must allow bowel rest. Push clear fluids. Patient to take high-dose [id number] twice a day. Take Zofran 8 mg up to 4 times a day for active nausea and vomiting. Follow-up primary care. Monitor glucose levels 4 times a day and show record to primary care. Follow-up primary care review ED work up. Recommend follow-up EGD and colonoscopy. Recommend follow-up biliary colic study. Patient encouraged his continued attempts to lose weight. Must follow-up. Patient return of any concerns. Must avoid high fat meals because this may exacerbate his biliary colic symptoms. [] Final Impression Final Impression 1. Abdomen Pain[] 2. Gastritis 3. Biliary colic 4. Morbid obesity 5. Diabetes-glucose 152 6. Hx HTN Dragon Disclaimer Dragon Disclaimer This electronic medical record was generated, in whole or in part, using a voice recognition dictation system. Dragon Disclaimer This chart was dictated in whole or in part using Voice Recognition software in a busy, high-work load, and often noisy Emergency Department environment. It may contain unintended and wholly unrecognized errors or omissions. TARIQ CALVILLO MD Feb 16, 2019 00:03
[2019-02-16] MEDS ORDERED: FAMOTIDINE 20 MG/2 ML VIAL IVP ONE (00:30)
[2019-02-16] MEDS ORDERED: IV RINGERS SOLUTION,LACTATED 1,000 ML IV SCH (00:30)
[2019-02-16] MEDS ORDERED: ONDANSETRON PF 4 MG/2 ML VIAL. IVP ONE (00:30)
--- NOTE | 2019-02-16 00:48 | EKG ---
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
[2019-02-16 00:58] LABS: BASO % 1 % (0-3); EOS # 0.4 x10^3/uL (0.0-0.7); EOS % 5 % (0-3); HEMATOCRIT 42.9 % (39.0-53.0); HEMOGLOBIN 14.5 g/dL (13.0-17.5); LYMPH % 28 % (24-48); MEAN CORPUSCULAR HEMOGLOBIN 30 pg (25-35); MEAN CORPUSCULAR HGB CONC 34 g/dL (31-37); MEAN CORPUSCULAR VOLUME 88 fL (79-100); MONO # 0.7 x10^3/uL (0.0-1.1); MONO % 9 % (0-9); NEUT # 4.1 x10^3uL (1.8-7.7); NEUT % 57 % (31-73); PLATELET COUNT 241 x10^3/uL (140-400); RED BLOOD COUNT 4.87 x10^6/uL (4.30-5.70); RED CELL DISTRIBUTION WIDTH 13.4 % (11.5-14.5); WHITE BLOOD COUNT 7.1 x10^3/uL (4.0-11.0)
[2019-02-16] MEDS ORDERED: MORPHINE SULFATE 10 MG/ML SYRINGE. SQ ONE ×2 (01:00→02:00)
[2019-02-16 01:06] LABS: BACTERIA,URINE 0 /HPF (0-FEW); BILIRUBIN,URINE NEG (NEG); CLARITY,URINE CLEAR; COLOR,URINE YELLOW; GLUCOSE,URINE NEG (NEG); NITRITE,URINE NEG (NEG); SQUAMOUS EPITHELIAL CELL,UR OCC /LPF; UROBILINOGEN,URINE 0.2 mg/dL (0.2 mg/dL); WBC,URINE OCC /HPF (0-4)
[2019-02-16 01:08] LABS: BARBITURATES NEG (NEG); BENZODIAZEPINES NEG (NEG); CANNABINOIDS NEG (NEG); COCAINE NEG (NEG); METHADONE NEG (NEG); OPIATES POS (NEG); PHENCYCLIDINE NEG (NEG)
[2019-02-16 01:11] LABS: ALBUMIN 3.4 g/dL (3.4-5.0); CALCIUM 8.8 mg/dL (8.5-10.1); DIRECT BILIRUBIN 0.1 mg/dL (0.0-0.2); GFR 83.6; POTASSIUM 4.3 mmol/L (3.5-5.1); TOTAL BILIRUBIN 0.2 mg/dL (0.2-1.0); TOTAL PROTEIN 7.3 g/dL (6.4-8.2)
[2019-02-16 01:15] LABS: AMPHETAMINE/METHAMPHETAMINE NEG (NEG)
[2019-02-16 01:30] LABS: INFLUENZA A PATIENT NEGATIVE (NEGATIVE); INFLUENZA B PATIENT NEGATIVE (NEGATIVE)
[2019-02-16] MEDS ORDERED: CONTRAST GIVEN MC PRN (02:15)
[2019-02-16] MEDS ORDERED: IOHEXOL 300 MG/ML 75 ML VIAL. IV ONE (02:15)
[2019-02-16] MEDS ORDERED: IOHEXOL 240 MG/ML 50ML VIAL. PO ONE (02:15)
[2019-02-16] MEDS ORDERED: KETOROLAC 30 MG/ML VIAL. IVP ONE (04:00)
--- NOTE | 2019-02-16 04:44 | RAD ---
CT SCAN OF THE ABDOMEN AND PELVIS WITH IV CONTRAST. History: Left upper quadrant pain and nausea and vomiting and diarrhea Comparison:None. Procedure: Contiguous axial images of the abdomen and pelvis were performed after the administration of 75 cc of Omni 240 IV contrast. Oral contrast: Yes. Findings: Liver: Hypoattenuating Spleen: Unremarkable Pancreas: Unremarkable Adrenal Glands: Unremarkable Kidneys: Unremarkable There is no mass or lymphadenopathy. There is no free air. There is no free fluid. The urinary bladder appears normal. The appendix is normal. Impression: Fatty infiltration of the liver. PQRS Compliance Statement: One or more of the following individualized dose reduction techniques were utilized for this examination: 1. Automated exposure control 2. Adjustment of the mA and/or kV according to patient size 3. Use of iterative reconstruction technique Electronically signed by: Madhav Bruce III, MD (02/16/2019 4:41 AM) [facility]
[2019-02-16 04:59] VITALS: BP 132/70
[2019-02-16] MEDS ORDERED: RANI-376 PO (05:11)
[2019-02-16] MEDS ORDERED: OXYC1TAB15 PO (05:11)
[2019-02-16] MEDS ORDERED: ONDA8TAB9 PO (05:11)
[2019-02-16] MEDS ORDERED: MAGNESIUM HYDROXIDE 2,400 MG/30 ML ORAL.SUSP. PO ONE ×2 (05:30→06:00)
--- NOTE | 2019-02-16 05:58 | RAD ---
Acute Abdominal Series: Technique: PA view of the chest and supine and upright views of the abdomen were obtained. History: Nausea vomiting and right upper quadrant pain Comparison: None. Findings: The lungs and pleural margins are clear. The bowel gas pattern appears normal. There is no free air. Impression: Radiographically normal acute abdominal series. Electronically signed by: Madhav Bruce III, MD (02/16/2019 5:55 AM) [facility]
[2019-02-17 01:07] LABS: HEMOGLOBIN A1C 6.7 % (4.8-5.6)
== END 2019-02-16 06:59 | disposition home or self-care (01) ==
LOC: ER 23:55
DX: K29.70 Gastritis, unspecified, without bleeding (principal); K80.50 Calculus of bile duct without cholangitis or cholecystitis without obstruction; E66.01 Morbid (severe) obesity due to excess calories; E11.9 Type 2 diabetes mellitus without complications; I10 Essential (primary) hypertension; F41.9 Anxiety disorder, unspecified; K21.9 Gastro-esophageal reflux disease without esophagitis; Z88.2 Allergy status to sulfonamides; Z68.41 Body mass index [BMI] 40.0-44.9, adult; Z88.5 Allergy status to narcotic agent; Z91.010 Allergy to peanuts
CPT/HCPCS: 36415; 74022; 74177; 80048; 80061; 80076; 80307; 81001; 82150; 83036; 83690; 84484; 85025; 85610; 85730; 87804; 93005; 96361; 96372; 96374; 96375; 99285; G0480; J1885; J2270; J2405; J3490; J7120; Q9966; Q9967

== ENCOUNTER 2019-07-06 19:19 | Emergency (ER) | payer OTHER ==
[~2019-07-06] VITALS: Ht 167.6 cm; Wt 144.7 kg
[~2019-07-06 19:19] MED LIST changes: +OXYC1TAB15 PO
--- NOTE | 2019-07-06 20:11 | RAD ---
Three-view right shoulder dated 07/06/2019. No comparison available. CLINICAL INDICATION: Shoulder pain. FINDINGS: 3 views the right shoulder show normal bony alignment. No displaced fracture. No acute osseous or articular abnormality. IMPRESSION: No acute findings. Electronically signed by: Edil Mar MD (07/06/2019 8:08 PM) [id number]
[2019-07-06] MEDS ORDERED: CYCLOBENZAPRINE 10 MG TABLET. PO ONE (20:15)
[2019-07-06] MEDS ORDERED: HYDROcodone/APAP 7.5/325MG 1 TAB TABLET PO ONE (20:15)
[2019-07-06] MEDS ORDERED: methylPREDNISolone SOD SUCC PF 125 MG/2 ML VIAL. IV ONE (20:15)
[2019-07-06] MEDS ORDERED: CYCLOBENZAPRINE 10 MG TABLET. ONE (20:29)
[2019-07-06] MEDS ORDERED: HYDROcodone/APAP 7.5/325MG 1 TAB TABLET ONE (20:29)
[2019-07-06] MEDS ORDERED: methylPREDNISolone SOD SUCC PF 125 MG/2 ML VIAL. ONE (20:29)
[2019-07-06] MEDS ORDERED: methylPREDNISolone SOD SUCC PF 125 MG/2 ML VIAL. IM ONE (20:30)
[2019-07-06] MEDS ORDERED: PRED-220 PO (20:34)
[2019-07-06] MEDS ORDERED: CYCL-331 PO (20:34)
[2019-07-06] MEDS ORDERED: HYDR-3165 PO (20:34)
--- NOTE | 2019-07-06 20:35 | PHYS DOC ---
Past History Past Medical History: Anxiety, Diabetes, GERD, Hypertension, Other Additional Past Medical Histor: rectal fissure Past Surgical History: Other Additional Past Surgical Histo: fissure repair Additional Smoking Information: VAPING Alcohol Use: None Drug Use: None Adult General Chief Complaint Chief Complaint: UPPER EXTREMITY PAIN HPI HPI 39-year-old male presents with right neck and shoulder pain. The patient was just stretching when he heard a popping sound in the shoulder region. Within 30 seconds he had significant pain from his neck reading down the top of his shoulder into the upper arm. He was not lifting weight he was not doing anything strenuous. Patient does have a history of cervical fracture couple years ago. He has had more neck pain and intermittent issue since that time. He's never had this in however. He denies loss of sensation or new weakness. He can feel that his muscles are very tight in the area. He called his primary care physician but he could not be seen today. He is advised to come to the emergency room. Review of Systems Review of Systems Constitutional: Denies fever or chills [] Eyes: Denies change in visual acuity, redness, or eye pain [] HENT: Denies nasal congestion or sore throat [] Respiratory: Denies cough or shortness of breath [] Cardiovascular: No additional information not addressed in HPI [] GI: Denies abdominal pain, nausea, vomiting, bloody stools or diarrhea [] : Denies dysuria or hematuria [] Musculoskeletal: Right shoulder and neck pain.[] Integument: Denies rash or skin lesions [] Neurologic: Denies headache, focal weakness or sensory changes [] Endocrine: Denies polyuria or polydipsia [] All other systems were reviewed and found to be within normal limits, except as documented in this note. Current Medications Current Medications Current Medications Medications (Trade) Dose Ordered Sig/Heladio Start Time Stop Time Status Last Admin Dose Admin Acetaminophen/ Hydrocodone Bitart (Lortab 7.5/325) 1 tab 1X ONCE 07/06/19 20:15 07/06/19 20:16 UNV Cyclobenzaprine HCl (Flexeril) 10 mg 1X ONCE 07/06/19 20:15 07/06/19 20:16 UNV Methylprednisolone Sodium Succinate (SOLU-Medrol 125MG VIAL) 125 mg 1X ONCE 07/06/19 20:15 07/06/19 20:16 UNV Allergies Allergies Allergies Coded Allergies Type Severity Reaction Last Updated Verified Sulfa (Sulfonamide Antibiotics) Allergy Severe SWELLING 12/02/18 Yes codeine Allergy Severe SWELLING 12/02/18 Yes peanut Allergy Unknown 12/02/18 Yes Physical Exam Physical Exam Constitutional: Well developed, well nourished, no acute distress, non-toxic appearance. [] HENT: Normocephalic, atraumatic, bilateral external ears normal, oropharynx moist, no oral exudates, nose normal. [] Eyes: PERRLA, EOMI, conjunctiva normal, no discharge. [] Neck: Tenderness over the cervical paraspinal muscles and trapezius distribution on the right. Obvious muscle spasm.[] Cardiovascular:Heart rate regular rhythm, no murmur [] Lungs & Thorax: Bilateral breath sounds clear to auscultation [] Abdomen: Bowel sounds normal, soft, no tenderness, no masses, no pulsatile masses. [] Skin: Warm, dry, no erythema, no rash. [] Back: No tenderness, no CVA tenderness. [] Extremities: No tenderness, no cyanosis, no clubbing, ROM intact, no edema. [] Neurologic: Alert and oriented X 3, normal motor function, normal sensory function, no focal deficits noted. [] Psychologic: Affect normal, judgement normal, mood normal. [] Current Patient Data Vital Signs Vital Signs Date Time Temp Pulse Resp B/P (MAP) Pulse Ox O2 Delivery O2 Flow Rate FiO2 07/06/19 19:31 97.9 84 18 144/74 (97) 96 Room Air EKG EKG [] Radiology/Procedures Radiology/Procedures [] Impressions: Three-view right shoulder dated 07/06/2019. No comparison available. CLINICAL INDICATION: Shoulder pain. FINDINGS: 3 views the right shoulder show normal bony alignment. No displaced fracture. No acute osseous or articular abnormality. IMPRESSION: No acute findings. Electronically signed by: Edil Mar MD (07/06/2019 8:08 PM) [id number] DICTATED AND SIGNED BY: EDIL MAR MD DATE: 07/06/192007 CC: FITO MEYERS MD; PATSY SCHOFIELD DO ~ Course & Med Decision Making Course & Med Decision Making Pertinent Labs and Imaging studies reviewed. (See chart for details) The patient appears to have an acute muscle spasm as a result of pinching a n erve. I suspect he has a bulging disc or degenerative change in the cervical spine. I will place him on [place] for short period, Flexeril, and steroids. We will give the first dose of each of those in the ER. He has a ride home. He is stable for discharge at this time. [] Dragon Disclaimer Dragon Disclaimer This electronic medical record was generated, in whole or in part, using a voice recognition dictation system. Departure Departure: Impression: Primary Impression: Pinched nerve in neck Disposition: HOME, SELF-CARE Condition: STABLE Referrals: FITO MEYERS MD (PCP) Patient Instructions: Pinched Nerve Scripts Hydrocodone Bit/Acetaminophen (NORCO 5-325 TABLET) 1 Each Tablet 1 TAB PO PRN Q6HRS PRN for PAIN, #14 TAB 0 Refills Prov: PATSY SCHOFIELD DO 07/06/19 Prednisone (PREDNISONE) 10 Mg Tablet 60 MG PO DAILY for pinched nerve for 4 Days, #24 TAB Prov: PATSY SCHOFIELD DO 07/06/19 Cyclobenzaprine Hcl (CYCLOBENZAPRINE HCL) 10 Mg Tablet 1 TAB PO TID PRN for MUSCLE SPASMS, #30 TAB Prov: PATSY SCHOFIELD DO 07/06/19 PATSY SCHOFIELD DO Jul 06, 2019 20:35
== END 2019-07-06 20:42 | disposition home or self-care (01) ==
LOC: ER 19:19
DX: G58.8 Other specified mononeuropathies (principal); F41.9 Anxiety disorder, unspecified; E11.9 Type 2 diabetes mellitus without complications; K21.9 Gastro-esophageal reflux disease without esophagitis; I10 Essential (primary) hypertension; F17.200 Nicotine dependence, unspecified, uncomplicated; Z88.2 Allergy status to sulfonamides; Z88.5 Allergy status to narcotic agent; Z91.010 Allergy to peanuts
CPT/HCPCS: 73030; 96372; 99283; J2930

== ENCOUNTER 2019-08-21 17:04 | Emergency (ER) | payer OTHER ==
[~2019-08-21] VITALS: Ht 167.6 cm; Wt 144.7 kg
[~2019-08-21 17:04] MED LIST changes: +CYCL-331 PO; +HYDR-3165 PO; +PRED-220 PO
[2019-08-21 17:19] VITALS: BP 121/86
--- NOTE | 2019-08-21 18:18 | PHYS DOC ---
Past History Past Medical History: Anxiety, Diabetes, GERD, Hypertension, Other Additional Past Medical Histor: rectal fissure Past Surgical History: Other Additional Past Surgical Histo: fissure repair Alcohol Use: None Drug Use: None General Adult EDM: Chief Complaint: LOWEREXTREMITY INJURY HPI: HPI: Patient is a 39 year old female who presents for evaluation of bilateral knee pain. Patient states that he had a fall last night after he passed out for an unknown reason. Patient has pain with putting any pressure especially on his right knee. Patient denies any chest pain, shortness of air or other symptoms before he passed out. Patient does not have any of those current complaints either. Patient has risk factors include diabetes, hypertension, obesity. There is bruising present to both of his knees but he has full mobility noted Review of Systems: Review of Systems: Constitutional: Denies fever or chills Eyes: Denies change in visual acuity HENT: Denies nasal congestion or sore throat Respiratory: Denies cough or shortness of breath Cardiovascular: Denies chest pain or edema GI: Denies abdominal pain, nausea, vomiting, bloody stools or diarrhea : Denies dysuria Musculoskeletal: Tender both knees, full range of motion noted Integument: Denies rash Neurologic: Denies headache, no focal weakness or sensory changes Endocrine: Denies polyuria or polydipsia Lymphatic: Denies swollen glands Psychiatric: Denies depression or anxiety Heart Score: Risk Factors: Risk Factors: DM, Current or recent (<one month) smoker, HTN, HLP, family history of CAD, obesity. Risk Scores: Score 0 - 3: 2.5% MACE over next 6 weeks - Discharge Home Score 4 - 6: 20.3% MACE over next 6 weeks - Admit for Clinical Observation Score 7 - 10: 72.7% MACE over next 6 weeks - Early Invasive Strategies Allergies: Allergies: Allergies Coded Allergies Type Severity Reaction Last Updated Verified Sulfa (Sulfonamide Antibiotics) Allergy Severe SWELLING 12/02/18 Yes codeine Allergy Severe SWELLING 12/02/18 Yes peanut Allergy Unknown 12/02/18 Yes Physical Exam: PE: Constitutional: Well developed, well nourished, mild acute distress, non-toxic appearance. [] HENT: Normocephalic, atraumatic, bilateral external ears normal, oropharynx moist, no oral exudates, nose normal. [] Eyes: PERRL, EOMI, conjunctiva normal, no discharge. [] Neck: Normal range of motion, no tenderness, supple, no stridor. [] Cardiovascular:Heart rate regular rhythm, no murmur [] Lungs & Thorax: Bilateral breath sounds clear to auscultation [] Abdomen: Bowel sounds normal, soft, no tenderness, no masses, no pulsatile masses. [] Skin: Warm, dry, no erythema, no rash. [] Back: No tenderness, no CVA tenderness. [] Extremities: Tender both knees to palpation, not ballotable, no ecchymosis left knee more tender than right knee inferiorly, no cyanosis, no clubbing, ROM intact, no edema. [] Neurologic: Alert and oriented X 3, normal motor function, normal sensory function, no focal deficits noted. [] Psychologic: Affect normal, judgement normal, mood normal. [] Current Patient Data: Labs: Laboratory Tests Test 08/21/19 18:38 White Blood Count 11.2 x10^3/uL (4.0-11.0) Red Blood Count 4.97 x10^6/uL (4.30-5.70) Hemoglobin 14.5 g/dL (13.0-17.5) Hematocrit 44.3 % (39.0-53.0) Mean Corpuscular Volume 89 fL (79-100) Mean Corpuscular Hemoglobin 29 pg (25-35) Mean Corpuscular Hemoglobin Concent 33 g/dL (31-37) Red Cell Distribution Width 14.3 % (11.5-14.5) Platelet Count 243 x10^3/uL (140-400) Neutrophils (%) (Auto) 67 % (31-73) Lymphocytes (%) (Auto) 21 % (24-48) Monocytes (%) (Auto) 9 % (0-9) Eosinophils (%) (Auto) 2 % (0-3) Basophils (%) (Auto) 1 % (0-3) Neutrophils # (Auto) 7.5 x10^3uL (1.8-7.7) Lymphocytes # (Auto) 2.3 x10^3/uL (1.0-4.8) Monocytes # (Auto) 1.0 x10^3/uL (0.0-1.1) Eosinophils # (Auto) 0.3 x10^3/uL (0.0-0.7) Basophils # (Auto) 0.1 x10^3/uL (0.0-0.2) Sodium Level 136 mmol/L (136-145) Potassium Level 4.8 mmol/L (3.5-5.1) Chloride Level 99 mmol/L (98-107) Carbon Dioxide Level 25 mmol/L (21-32) Anion Gap 12 (6-14) Blood Urea Nitrogen 15 mg/dL (8-26) Creatinine 1.1 mg/dL (0.7-1.3) Estimated GFR (Cockcroft-Gault) 74.5 BUN/Creatinine Ratio 14 (6-20) Glucose Level 203 mg/dL (70-99) Calcium Level 9.2 mg/dL (8.5-10.1) Total Bilirubin 0.3 mg/dL (0.2-1.0) Aspartate Amino Transf (AST/SGOT) 61 U/L (15-37) Alanine Aminotransferase (ALT/SGPT) 78 U/L (16-63) Alkaline Phosphatase 100 U/L (46-116) Troponin I Quantitative < 0.017 ng/mL (0-0.055) Total Protein 7.5 g/dL (6.4-8.2) Albumin 3.7 g/dL (3.4-5.0) Albumin/Globulin Ratio 1.0 (1.0-1.7) Vital Signs: Vital Signs Date Time Temp Pulse Resp B/P (MAP) Pulse Ox O2 Delivery O2 Flow Rate FiO2 08/21/19 17:19 98.2 89 18 121/86 (98) 96 Room Air EKG: EKG: NSR rate 87, not STEMI, LAD, not STEMI read at 1815 Radiology/Procedures: Radiology/Procedures: Bilateral knee x-rays reviewed by me showed no acute findings, arthritis present. Chest x-ray reviewed by me showed no acute findings, no pneumothorax, no infiltrates Course & Med Decision Making: Course & Med Decision Making Pertinent Labs and Imaging studies reviewed. (See chart for details) 1952 stable, reassessed at this time. Pain under better control. There is no fractures noted on knee x-rays and patient does not have an abnormal chest x- ray. As far as the syncope work-up no acute findings found except elevated blood sugar 200. Detailed follow-up instructions given. We placed Ilia wrap on both of his knees. Patient fully ambulatory. Patient states he does not need prescription for any medication as he already has pain meds and anti- inflammatories at home. Considerations of syncope included hypoglycemia, electrolyte disturbance, cardiac issue, anemia, cardiac rhythm disturbance Dragon Disclaimer: Dragon Disclaimer: This electronic medical record was generated, in whole or in part, using a voice recognition dictation system. Departure Departure: Impression: Primary Impression: Contusion of left knee Additional Impressions: Contusion of right knee Syncope Hyperglycemia Disposition: 01 HOME, SELF-CARE Condition: STABLE Referrals: FITO MEYERS MD (PCP) Patient Instructions: Hyperglycemia, [id number], Knee Sprain, [id number], Syncope, [id number] Additional Instructions: Wear Ilia wrap on both of your knees for the next several days. Rest, ice and elevate both knees for the next 24 hours. Use your home Tylenol and anti- inflammatory medication as directed. Return if worsen SADE LOGAN DO August 21, 2019 18:18
[2019-08-21] MEDS ORDERED: IBUPROFEN 600 MG TABLET. PO ONE (18:45)
[2019-08-21 19:11] LABS: BASO # 0.1 x10^3/uL (0.0-0.2); BASO % 1 % (0-3); EOS # 0.3 x10^3/uL (0.0-0.7); EOS % 2 % (0-3); HEMATOCRIT 44.3 % (39.0-53.0); HEMOGLOBIN 14.5 g/dL (13.0-17.5); LYMPH # 2.3 x10^3/uL (1.0-4.8); LYMPH % 21 % (24-48); MEAN CORPUSCULAR HEMOGLOBIN 29 pg (25-35); MEAN CORPUSCULAR HGB CONC 33 g/dL (31-37); MEAN CORPUSCULAR VOLUME 89 fL (79-100); MONO % 9 % (0-9); NEUT # 7.5 x10^3uL (1.8-7.7); NEUT % 67 % (31-73); PLATELET COUNT 243 x10^3/uL (140-400); RED BLOOD COUNT 4.97 x10^6/uL (4.30-5.70); RED CELL DISTRIBUTION WIDTH 14.3 % (11.5-14.5); WHITE BLOOD COUNT 11.2 x10^3/uL (4.0-11.0)
[2019-08-21 19:21] LABS: CALCIUM 9.2 mg/dL (8.5-10.1); CREATININE 1.1 mg/dL (0.7-1.3); GFR 74.5; POTASSIUM 4.8 mmol/L (3.5-5.1)
[2019-08-21 19:28] LABS: ALBUMIN 3.7 g/dL (3.4-5.0); TOTAL BILIRUBIN 0.3 mg/dL (0.2-1.0); TOTAL PROTEIN 7.5 g/dL (6.4-8.2)
--- NOTE | 2019-08-21 19:52 | RAD ---
Exam: Chest one view INDICATION: Pain TECHNIQUE: Frontal view of the chest Comparisons: None FINDINGS: The cardiomediastinal silhouette and pulmonary vessels are within normal limits. The lung and pleural spaces are clear. IMPRESSION: No acute cardiopulmonary process. Electronically signed by: Nacho Golden MD (08/21/2019 7:49 PM) [id number]
--- NOTE | 2019-08-21 20:11 | RAD ---
EXAM: 1. 3 views right knee 2. 3 views left knee DATE: 08/21/2019 6:00 PM INDICATION: Pain, fall, injury COMPARISON: No Prior FINDINGS: Right knee: No evidence of acute fracture or dislocation. Joint spaces are preserved without significant degenerative/proliferative change. Small joint effusion. Left knee: No evidence of acute fracture or dislocation. Joint spaces small left knee joint effusion.are preserved although small lateral compartment osteophytes are seen. IMPRESSION: No evidence for acute fracture or dislocation of the knees. Small bilateral knee joint effusions. Electronically signed by: Marc Pino MD (08/21/2019 8:08 PM) JAI
[2019-08-21 20:25] LABS: BACTERIA,URINE 0 /HPF (0-FEW); BILIRUBIN,URINE NEG (NEG); CLARITY,URINE CLEAR; COLOR,URINE YELLOW; GLUCOSE,URINE NEG (NEG); NITRITE,URINE NEG (NEG); SQUAMOUS EPITHELIAL CELL,UR FEW /LPF; UROBILINOGEN,URINE 0.2 mg/dL (0.2 mg/dL)
--- NOTE | 2019-08-22 11:51 | EKG ---
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
== END 2019-08-21 20:10 | disposition home or self-care (01) ==
LOC: ER 17:04
DX: S80.02XA Contusion of left knee, initial encounter (principal); S80.01XA Contusion of right knee, initial encounter; R55 Syncope and collapse; E11.65 Type 2 diabetes mellitus with hyperglycemia; F41.9 Anxiety disorder, unspecified; K21.9 Gastro-esophageal reflux disease without esophagitis; I10 Essential (primary) hypertension; E66.9 Obesity, unspecified; Z68.43 Body mass index [BMI] 50.0-59.9, adult; Z88.2 Allergy status to sulfonamides; Z88.5 Allergy status to narcotic agent; Z91.010 Allergy to peanuts; W18.39XA Other fall on same level, initial encounter; Y93.89 Activity, other specified; Y92.89 Other specified places as the place of occurrence of the external cause; Y99.8 Other external cause status
CPT/HCPCS: 36415; 71045; 73562; 80053; 81001; 84484; 85025; 93005; 99285-25

== ENCOUNTER 2019-11-16 12:47 | Emergency (ER) | payer OTHER ==
[~2019-11-16] VITALS: Ht 172.7 cm; Wt 159.0 kg
[2019-11-16 12:52] VITALS: BP 121/86
[2019-11-16] MEDS ORDERED: MUPI15CR8 TP (13:12)
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
[2019-11-16] MEDS ORDERED: MUPIROCIN 2% TOPICAL OINTMENT 22GM TUBE. TP ONE (13:15)
== END 2019-11-16 13:25 | disposition home or self-care (01) ==
LOC: ER 12:47
DX: T21.22XA Burn of second degree of abdominal wall, initial encounter (principal); E11.9 Type 2 diabetes mellitus without complications; K21.9 Gastro-esophageal reflux disease without esophagitis; I10 Essential (primary) hypertension; F41.9 Anxiety disorder, unspecified; Z88.2 Allergy status to sulfonamides; Z88.5 Allergy status to narcotic agent; Z91.010 Allergy to peanuts; X10.2XXA Contact with fats and cooking oils, initial encounter; Y93.G3 Activity, cooking and baking; Y92.89 Other specified places as the place of occurrence of the external cause; Y99.8 Other external cause status
CPT/HCPCS: 99283

== ENCOUNTER 2020-03-05 10:24 | Emergency (ER) | payer OTHER ==
[~2020-03-05] VITALS: Ht 172.7 cm; Wt 136.9 kg
[~2020-03-05 10:24] MED LIST changes: +MUPI15CR8 TP
[2020-03-05] MEDS ORDERED: IV NORMAL SALINE 1,000ML 1,000 ML IV ONE (11:15)
--- NOTE | 2020-03-05 11:54 | RAD ---
Examination: CHEST AP ONLY History: covid 19 Comparison: 08/21/2019. Findings: AP portable upright frontal view of the chest was obtained. The cardiomediastinal silhouette is normal. Lungs are clear. There is no pneumothorax. No pleural effusion is appreciated. No acute bone abnormality. IMPRESSION: No acute cardiopulmonary process. Electronically signed by: Patrick Khanna MD (03/05/2020 11:51 AM) [id number]
[2020-03-05 12:04] LABS: BASO % 1 % (0-3); EOS # 0.1 x10^3/uL (0.0-0.7); EOS % 2 % (0-3); HEMATOCRIT 43.5 % (39.0-53.0); HEMOGLOBIN 14.4 g/dL (13.0-17.5); LYMPH # 1.6 x10^3/uL (1.0-4.8); LYMPH % 33 % (24-48); MEAN CORPUSCULAR HEMOGLOBIN 29 pg (25-35); MEAN CORPUSCULAR HGB CONC 33 g/dL (31-37); MEAN CORPUSCULAR VOLUME 87 fL (79-100); MONO # 0.5 x10^3/uL (0.0-1.1); MONO % 10 % (0-9); NEUT # 2.6 x10^3uL (1.8-7.7); NEUT % 53 % (31-73); PLATELET COUNT 158 x10^3/uL (140-400); RED BLOOD COUNT 5.01 x10^6/uL (4.30-5.70); RED CELL DISTRIBUTION WIDTH 13.3 % (11.5-14.5); WHITE BLOOD COUNT 4.9 x10^3/uL (4.0-11.0)
[2020-03-05 12:14] LABS: CALCIUM 8.8 mg/dL (8.5-10.1); GFR 83.2; POTASSIUM 4.3 mmol/L (3.5-5.1)
[2020-03-05] MEDS ORDERED: ONDANSETRON PF 4 MG/2 ML VIAL. ONE (12:16)
[2020-03-05 12:20] LABS: ALBUMIN 3.5 g/dL (3.4-5.0); ALBUMIN/GLOBULIN RATIO 0.9 (1.0-1.7); TOTAL BILIRUBIN 0.3 mg/dL (0.2-1.0); TOTAL PROTEIN 7.2 g/dL (6.4-8.2)
[2020-03-05] MEDS ORDERED: ONDANSETRON PF 4 MG/2 ML VIAL. IVP ONE (12:30)
[2020-03-05 12:33] VITALS: BP 135/84
[2020-03-05 12:49] LABS: BACTERIA,URINE 0 /HPF (0-FEW); BILIRUBIN,URINE NEG (NEG); CLARITY,URINE CLEAR; COLOR,URINE AMBER; GLUCOSE,URINE NEG (NEG); NITRITE,URINE NEG (NEG); SQUAMOUS EPITHELIAL CELL,UR OCC /LPF; WBC,URINE 0 /HPF (0-4)
[2020-03-05] MEDS ORDERED: ONDA4TAB12 PO (12:49)
--- NOTE | 2020-03-05 12:49 | PHYS DOC ---
Past History Past Medical History: Anxiety, Diabetes, GERD, Hypertension, Other Additional Past Medical Histor: rectal fissure, chronic pain Past Surgical History: Other Additional Past Surgical Histo: fissure repair Smoking: Cigarettes Alcohol Use: None Drug Use: None General Adult EDM: Chief Complaint: DYSPNEA/RESPIRATOY DISTRESS HPI: HPI: 39-year-old male complaining of shortness of breath. He got a positive Covid result yesterday. Has been coughing and having some diarrhea. Had nausea but no vomiting. Low-grade fevers at home. Other feeling numbers sick with similar symptoms. Has a history of asthma and is been using his inhaler some without improvement. Review of Systems: Review of Systems: Constitutional: Fever malaise Eyes: Denies change in visual acuity HENT: Denies nasal congestion or sore throat Respiratory: Denies cough or shortnessofbreath Cardiovascular: Denies chest pain or edema GI: Nausea without vomiting, nonbloody diarrhea : Denies dysuria Musculoskeletal: Denies back pain or joint pain Integument: Denies rash Neurologic: Denies headache, focal weakness or sensory changes Endocrine: Denies polyuria or polydipsia Lymphatic: Denies swollen glands Psychiatric: Denies depression or anxiety Current Medications: Current Meds: Current Medications Medications (Trade) Dose Ordered Sig/Heladio Start Time Stop Time Status Last Admin Dose Admin Ondansetron HCl (Zofran) 4 mg 1X ONCE 03/05/20 12:30 03/05/20 12:31 DC 03/05/20 12:20 4 MG Sodium Chloride 1,000 ml @ 1,000 mls/hr 1X ONCE 03/05/20 11:15 03/05/20 12:14 DC 03/05/20 11:40 1,000 MLS/HR Allergies: Allergies: Allergies Coded Allergies Type Severity Reaction Last Updated Verified Sulfa (Sulfonamide Antibiotics) Allergy Severe SWELLING 12/02/18 Yes codeine Allergy Severe SWELLING 12/02/18 Yes peanut Allergy Unknown 12/02/18 Yes Physical Exam: PE: Constitutional: Well developed, well nourished, no acute distress, non-toxic appearance. [] HENT: Normocephalic, atraumatic, bilateral external ears normal, oropharynx moist, no oral exudates, nose normal. [] Eyes: PERRLA, EOMI, conjunctiva normal, no discharge. [] Neck: Normal range of motion, no tenderness, supple, no stridor. [] Cardiovascular:Heart rate regular rhythm, no murmur [] Lungs & Thorax: Bilateral breath sounds clear to auscultation [] Abdomen: Bowel sounds normal, soft, no tenderness, no masses, no pulsatile masses. [] Skin: Warm, dry, no erythema, no rash. [] Back: No tenderness, no CVA tenderness. [] Extremities: No tenderness, no cyanosis, no clubbing, ROM intact, no edema. [] Neurologic: Alert and oriented X 3, normal motor function, normal sensory function, no focal deficits noted. [] Psychologic: Affect normal, judgement normal, mood normal. [] Current Patient Data: Labs: Laboratory Tests Test 03/05/20 11:35 White Blood Count 4.9 x10^3/uL (4.0-11.0) Red Blood Count 5.01 x10^6/uL (4.30-5.70) Hemoglobin 14.4 g/dL (13.0-17.5) Hematocrit 43.5 % (39.0-53.0) Mean Corpuscular Volume 87 fL (79-100) Mean Corpuscular Hemoglobin 29 pg (25-35) Mean Corpuscular Hemoglobin Concent 33 g/dL (31-37) Red Cell Distribution Width 13.3 % (11.5-14.5) Platelet Count 158 x10^3/uL (140-400) Neutrophils (%) (Auto) 53 % (31-73) Lymphocytes (%) (Auto) 33 % (24-48) Monocytes (%) (Auto) 10 % (0-9) H Eosinophils (%) (Auto) 2 % (0-3) Basophils (%) (Auto) 1 % (0-3) Neutrophils # (Auto) 2.6 x10^3uL (1.8-7.7) Lymphocytes # (Auto) 1.6 x10^3/uL (1.0-4.8) Monocytes # (Auto) 0.5 x10^3/uL (0.0-1.1) Eosinophils # (Auto) 0.1 x10^3/uL (0.0-0.7) Basophils # (Auto) 0.0 x10^3/uL (0.0-0.2) D-Dimer (Mary Ann) 0.31 mg/L (0.00-0.50) Sodium Level 139 mmol/L (136-145) Potassium Level 4.3 mmol/L (3.5-5.1) Chloride Level 102 mmol/L (98-107) Carbon Dioxide Level 25 mmol/L (21-32) Anion Gap 12 (6-14) Blood Urea Nitrogen 10 mg/dL (8-26) Creatinine 1.0 mg/dL (0.7-1.3) Estimated GFR (Cockcroft-Gault) 83.2 BUN/Creatinine Ratio 10 (6-20) Glucose Level 164 mg/dL (70-99) H Lactic Acid Level 1.7 mmol/L (0.4-2.0) Calcium Level 8.8 mg/dL (8.5-10.1) Total Bilirubin 0.3 mg/dL (0.2-1.0) Aspartate Amino Transferase (AST) 52 U/L (15-37) H Alanine Aminotransferase (ALT) 69 U/L (16-63) H Alkaline Phosphatase 106 U/L (46-116) Troponin I Quantitative < 0.017 ng/mL (0-0.055) VY-Eul-Q-Type Natriuretic Peptide 36 pg/mL (0-124) Total Protein 7.2 g/dL (6.4-8.2) Albumin 3.5 g/dL (3.4-5.0) Albumin/Globulin Ratio 0.9 (1.0-1.7) L Vital Signs: Vital Signs Date Time Temp Pulse Resp B/P (MAP) Pulse Ox O2 Delivery O2 Flow Rate FiO2 03/05/20 10:30 98.8 93 24 159/90 (113) 97 Room Air EKG: EKG: [] Radiology/Procedures: Radiology/Procedures: PROCEDURE: CHEST AP ONLY Examination: CHEST AP ONLY History: covid 19 Comparison: 08/21/2019. Findings: AP portable upright frontal view of the chest was obtained. The cardiomediastinal silhouette is normal. Lungs are clear. There is no pneumothorax. No pleural effusion is appreciated. No acute bone abnormality. IMPRESSION: No acute cardiopulmonary process. [] Heart Score: Risk Factors: Risk Factors: DM, Current or recent (<one month) smoker, HTN, HLP, family history of CAD, obesity. Risk Scores: Score 0 - 3: 2.5% MACE over next 6 weeks - Discharge Home Score 4 - 6: 20.3% MACE over next 6 weeks - Admit for Clinical Observation Score 7 - 10: 72.7% MACE over next 6 weeks - Early Invasive Strategies Course & Med Decision Making: Course & Med Decision Making Pertinent Labs and Imaging studies reviewed. (See chart for details) [] Dragon Disclaimer: Dragon Disclaimer: This electronic medical record was generated, in whole or in part, using a voice recognition dictation system. Departure Departure: Impression: Primary Impression: COVID-19 Disposition: 01 DC HOME SELF CARE/HOMELESS Condition: STABLE Referrals: FITO MEYERS MD (PCP) Additional Instructions: Pulse oximeter and monitor oxygen level, call your primary care physician if your oxygen level stays below 89% despite taking deep breaths. You have been tested for or diagnosed with COVID-19. It is an infection caused by a new type of coronavirus. COVID-19 will cause cold-like or mild flu symptoms in most. It can cause more severe symptoms like problems breathing in some. There is no treatment for COVID-19. The body will clear the infection over time. Self-care will help to ease discomfort. Steps to Take: Self-Care Rest as needed. Healthy habits may help you feel better. Steps include: Choose healthy foods including fruits and vegetables. Drink water throughout the day. Get plenty of sleep each night. If you smoke, try to quit. It may ease breathing. Avoid alcohol. Keep Others Healthy The virus can spread to others. Droplets are released every time you sneeze or cough. The droplets can get into the mouth, nose, or eyes of people near you and lead to infection. To lower the chances of spreading COVID-19 to others: Stay at home until your doctor has said it is safe to leave. If you tested positive this will mean staying isolated until both of the following are true: At least 7 days have passed since the start of illness. You are free of fever for at least 72 hours without the use of medicine. During this time: - Avoid public areas, events, or transportation. Do not return to work or school until your doctor has said it is safe to do so. - Call ahead if you need to go to a medical center. Let them know you may have COVID-19. It will help them guide you where to go. They may also ask you to wear a facemask when you come to the office. - If you call for emergency medical services, let them know you may have COVID- 19. While at home: - Try to avoid close contact with others. Stay about 6 feet away. - If possible, spend most of your time in a separate room from others. - Use a face mask if you will be in close contact with others such as sharing a room or vehicle. - Have someone wipe down common surfaces in the home. Use household human capital analyst every day on areas like doorknobs, counters, or sinks. - Cough or sneeze into a tissue. Throw the tissue away right after use. If a tissue is not available, cough or sneeze into your elbow. - Wash your hands often. Wash them after sneezing or coughing. Use soap and water and wash for at least 20 seconds. Alcohol based hand well cleaner can be used if soap and water is not available. - Do not prepare food for others. Avoid sharing personal items like forks, spoons, or toothbrushes. - Avoid close contact with pets while you are sick. There is no evidence of the virus passing to pets. This is a safety step until more is known about this virus. Isolation can be frustrating. Social interaction can help. Keep in touch with friends and family through phone and tech options. You can still interact with others in your home, just keep a safe distance of about 6 feet. Follow-up: Your doctors office will check in with you to see if there are any changes in your health. You may be asked to keep track of symptoms to share with them. They will also let you know when you are clear to be in public again. Problems to Look Out For: Contact your doctor if your recovery is not going as you expect. Get emergency care if you have problems such as: - Trouble breathing - Nonstop chest pain or pressure - Changes in awareness, confusion, or problems waking - Lips or face have bluish color - Worsening of symptoms If you think you have an emergency, call for emergency medical services right away. [facility] Ondansetron (ONDANSETRON ODT) 4 Mg Tab.rapdis 4 MG PO TID for nausea for 5 Days, #15 TAB Prov: ELYSE QUEEN MD 03/05/20 ELYSE QUEEN MD Mar 05, 2020 12:49
== END 2020-03-05 13:05 | disposition home or self-care (01) ==
LOC: ER 10:24
DX: U07.1 COVID-19 (principal); R19.7 Diarrhea, unspecified; F41.9 Anxiety disorder, unspecified; E11.9 Type 2 diabetes mellitus without complications; K21.9 Gastro-esophageal reflux disease without esophagitis; I10 Essential (primary) hypertension; G89.29 Other chronic pain; F17.210 Nicotine dependence, cigarettes, uncomplicated; J45.909 Unspecified asthma, uncomplicated; Z88.2 Allergy status to sulfonamides; Z88.5 Allergy status to narcotic agent; Z91.010 Allergy to peanuts
CPT/HCPCS: 36415; 71045; 80053; 81001; 83605; 83880; 84484; 85025; 85379; 96361; 96374; 99284; J2405; J7030

== ENCOUNTER → 2020-08-12 | Outpatient (CLI) | payer OTHER ==
[~2020-08-12] MED LIST changes: -LISI-334 PO; +LISI20TA18 PO; +ONDA4TAB12 PO
[2020-08-12 14:23] LABS: ALBUMIN 3.8 g/dL (3.4-5.0); ALBUMIN/GLOBULIN RATIO 0.8 (1.0-1.7); CALCIUM 9.6 mg/dL (8.5-10.1); CREATININE 1.1 mg/dL (0.7-1.3); GFR 74.1; POTASSIUM 3.9 mmol/L (3.5-5.1); TOTAL BILIRUBIN 0.3 mg/dL (0.2-1.0); TOTAL PROTEIN 8.4 g/dL (6.4-8.2)
[2020-08-12 14:36] LABS: BASO # 0.1 x10^3/uL (0.0-0.2); BASO % 2 % (0-3); EOS # 0.2 x10^3/uL (0.0-0.7); EOS % 3 % (0-3); HEMATOCRIT 43.9 % (39.0-53.0); HEMOGLOBIN 14.9 g/dL (13.0-17.5); LYMPH # 2.2 x10^3/uL (1.0-4.8); LYMPH % 30 % (24-48); MEAN CORPUSCULAR HEMOGLOBIN 30 pg (25-35); MEAN CORPUSCULAR HGB CONC 34 g/dL (31-37); MEAN CORPUSCULAR VOLUME 87 fL (79-100); MONO # 0.6 x10^3/uL (0.0-1.1); MONO % 8 % (0-9); NEUT # 4.3 x10^3uL (1.8-7.7); NEUT % 58 % (31-73); PLATELET COUNT 213 x10^3/uL (140-400); RED BLOOD COUNT 5.06 x10^6/uL (4.30-5.70); RED CELL DISTRIBUTION WIDTH 13.5 % (11.5-14.5); WHITE BLOOD COUNT 7.4 x10^3/uL (4.0-11.0)
[2020-08-13 05:11] LABS: HEMOGLOBIN A1C 12.6 % (4.8-5.6)
[2020-08-13 19:08] LABS: FREE T4 1.31 ng/dL (0.76-1.46); THYROID STIM HORMONE (TSH) 0.866 uIU/mL (0.358-3.740)
== END ==
LOC: LAB 12:08
PROVIDERS: ATTEND Internal Medicine
DX: E55.9 Vitamin D deficiency, unspecified (principal)
CPT/HCPCS: 36415; 80053; 80061; 82306; 82607; 83036; 84439; 84443; 85025

== ENCOUNTER 2020-10-04 18:07 | Emergency (ER) | payer OTHER ==
[~2020-10-04] VITALS: Ht 172.7 cm; Wt 136.9 kg
[2020-10-04] MEDS ORDERED: IV NORMAL SALINE 1,000ML 1,000 ML IV ONE ×2 (18:30→19:00)
[2020-10-04] MEDS ORDERED: INSULIN LISPRO 300 UNITS/3 ML VIAL. SQ ONE (19:00)
[2020-10-04 19:15] LABS: BASO # 0.1 x10^3/uL (0.0-0.2); BASO % 2 % (0-3); EOS # 0.1 x10^3/uL (0.0-0.7); EOS % 2 % (0-3); HEMATOCRIT 40.1 % (39.0-53.0); HEMOGLOBIN 13.6 g/dL (13.0-17.5); LYMPH # 2.3 x10^3/uL (1.0-4.8); LYMPH % 33 % (24-48); MEAN CORPUSCULAR HEMOGLOBIN 30 pg (25-35); MEAN CORPUSCULAR HGB CONC 34 g/dL (31-37); MEAN CORPUSCULAR VOLUME 90 fL (79-100); MONO # 0.5 x10^3/uL (0.0-1.1); MONO % 8 % (0-9); NEUT % 57 % (31-73); PLATELET COUNT 168 x10^3/uL (140-400); RED BLOOD COUNT 4.48 x10^6/uL (4.30-5.70); RED CELL DISTRIBUTION WIDTH 13.2 % (11.5-14.5)
[2020-10-04 19:17] LABS: CALCIUM 8.7 mg/dL (8.5-10.1)
[2020-10-04 19:31] LABS: BACTERIA,URINE 0 /HPF (0-FEW); BILIRUBIN,URINE NEG (NEG); CLARITY,URINE CLEAR; COLOR,URINE YELLOW; GLUCOSE,URINE >=1000 mg/dL (NEG); NITRITE,URINE NEG (NEG); RBC,URINE 0 /HPF (0-2); SQUAMOUS EPITHELIAL CELL,UR OCC /LPF; UROBILINOGEN,URINE 0.2 mg/dL (0.2 mg/dL); WBC,URINE 0 /HPF (0-4)
[2020-10-04 19:52] LABS: ALBUMIN 3.5 g/dL (3.4-5.0); CREATININE 1.2 mg/dL (0.7-1.3); GFR 67.1; TOTAL BILIRUBIN 0.3 mg/dL (0.2-1.0); TOTAL PROTEIN 6.9 g/dL (6.4-8.2)
[2020-10-04 21:16] VITALS: BP 147/73
--- NOTE | 2020-10-04 21:41 | PHYS DOC ---
Past History Past Medical History: Anxiety, Diabetes, GERD, Hypertension, Other Additional Past Medical Histor: rectal fissure, chronic pain Past Surgical History: Other Additional Past Surgical Histo: fissure repair Smoking: Cigarettes Additional Smoking Information: vapes Alcohol Use: None Drug Use: None General Adult EDM: Chief Complaint: HYPERGLYCEMIA HPI: HPI: 40-year-old male with past medical history of diabetes presents with concern for elevated blood sugar. Patient reports his blood sugar has been increasing since yesterday. Patient reports he checked it at 1745 and noted it was 545 mg/dL. Denies fever or chills. Patient reports some associated dizziness and "shakiness ". Denies cough. Reports increased urinary frequency. Denies dysuria. Review of Systems: Review of Systems: Constitutional: Denies fever or chills Eyes: Denies redness or eye pain HENT: Denies nasal congestion or sore throat Respiratory: Denies cough or shortness of breath Cardiovascular: Denies chest pain or palpitations GI: Denies abdominal pain, nausea, or vomiting : Denies dysuria or hematuria Musculoskeletal: Denies back pain or joint pain Integument: Denies rash or skin lesions Neurologic: Denies headache, focal weakness or sensory changes; reports dizziness and "shakiness " Complete systems were reviewed and found to be within normal limits, except as documented in this note. Current Medications: Current Meds: Current Medications Medications (Trade) Dose Ordered Sig/[facility] Start Time Stop Time Status Last Admin Dose Admin Insulin Human Lispro (HumaLOG) 14 units 1X ONCE 10/04/20 19:00 10/04/20 19:01 DC 10/04/20 20:05 14 UNITS Sodium Chloride 1,000 ml @ 1,000 mls/hr 1X ONCE 10/04/20 19:00 10/04/20 19:59 DC 10/04/20 20:10 1,000 MLS/HR Allergies: Allergies: Allergies Coded Allergies Type Severity Reaction Last Updated Verified Sulfa (Sulfonamide Antibiotics) Allergy Severe SWELLING 12/02/18 Yes codeine Allergy Severe SWELLING 12/02/18 Yes peanut Allergy Unknown 12/02/18 Yes Physical Exam: PE: Constitutional: Well developed, well nourished, no acute distress, non-toxic appearance HENT: Normocephalic, atraumatic Eyes: Conjunctiva normal, no discharge Neck: Normal range of motion, no tenderness, supple Lungs & Thorax: No respiratory distress, equal chest rise and fall Abdomen: Soft, no tenderness Skin: Warm, dry, no erythema, no rash Back: No tenderness, no CVA tenderness Extremities: No tenderness, ROM intact, no edema Neurologic: Alert and oriented X 3, normal motor function, normal sensory function, no focal deficits noted Psychologic: Affect anxious, judgment normal Current Patient Data: Labs: Laboratory Tests Test 10/04/20 18:34 10/04/20 21:32 White Blood Count 7.0 x10^3/uL (4.0-11.0) Red Blood Count 4.48 x10^6/uL (4.30-5.70) Hemoglobin 13.6 g/dL (13.0-17.5) Hematocrit 40.1 % (39.0-53.0) Mean Corpuscular Volume 90 fL (79-100) Mean Corpuscular Hemoglobin 30 pg (25-35) Mean Corpuscular Hemoglobin Concent 34 g/dL (31-37) Red Cell Distribution Width 13.2 % (11.5-14.5) Platelet Count 168 x10^3/uL (140-400) Neutrophils (%) (Auto) 57 % (31-73) Lymphocytes (%) (Auto) 33 % (24-48) Monocytes (%) (Auto) 8 % (0-9) Eosinophils (%) (Auto) 2 % (0-3) Basophils (%) (Auto) 2 % (0-3) Neutrophils # (Auto) 4.0 x10^3uL (1.8-7.7) Lymphocytes # (Auto) 2.3 x10^3/uL (1.0-4.8) Monocytes # (Auto) 0.5 x10^3/uL (0.0-1.1) Eosinophils # (Auto) 0.1 x10^3/uL (0.0-0.7) Basophils # (Auto) 0.1 x10^3/uL (0.0-0.2) Urine Collection Type Unknown Urine Color Yellow Urine Clarity Clear Urine pH 6.0 Urine Specific [place] <=1.005 Urine Protein Neg (NEG-TRACE) Urine Glucose (UA) >=1000 mg/dL (NEG) Urine Ketones (Stick) Neg mg/dL (NEG) Urine Blood Neg (NEG) Urine Nitrite Neg (NEG) Urine Bilirubin Neg (NEG) Urine Urobilinogen Dipstick 0.2 mg/dL (0.2 mg/dL) Urine Leukocyte Esterase Neg (NEG) Urine RBC 0 /HPF (0-2) Urine WBC 0 /HPF (0-4) Urine Squamous Epithelial Cells Occ /LPF Urine Bacteria 0 /HPF (0-FEW) Sodium Level 135 mmol/L (136-145) L Potassium Level 4.0 mmol/L (3.5-5.1) Chloride Level 97 mmol/L (98-107) L Carbon Dioxide Level 25 mmol/L (21-32) Anion Gap 13 (6-14) Blood Urea Nitrogen 6 mg/dL (8-26) L Creatinine 1.2 mg/dL (0.7-1.3) Estimated GFR (Cockcroft-Gault) 67.1 BUN/Creatinine Ratio 5 (6-20) L Glucose Level 613 mg/dL (70-99) *H Calcium Level 8.7 mg/dL (8.5-10.1) Magnesium Level 2.0 mg/dL (1.8-2.4) Total Bilirubin 0.3 mg/dL (0.2-1.0) Aspartate Amino Transferase (AST) 28 U/L (15-37) Alanine Aminotransferase (ALT) 55 U/L (16-63) Alkaline Phosphatase 121 U/L (46-116) H Total Protein 6.9 g/dL (6.4-8.2) Albumin 3.5 g/dL (3.4-5.0) Albumin/Globulin Ratio 1.0 (1.0-1.7) Acetone Level Neg (NEG) Glucose (Fingerstick) 503 mg/dL (70-99) *H Vital Signs: Vital Signs Date Time Temp Pulse Resp B/P (MAP) Pulse Ox O2 Delivery O2 Flow Rate FiO2 10/04/20 18:17 97.4 117 16 151/96 (114) 97 Room Air EKG: EKG: [] Radiology/Procedures: Radiology/Procedures: [] Heart Score: C/O Chest Pain: N/A Course & Med Decision Making: Course & Med Decision Making Pertinent Lab studies reviewed. (See chart for details) Patient presents with report of elevated blood sugar with associated dizziness and "shakiness ". IV fluid hydration given x2 L. Labs obtained and posted to chart. Hyperglycemia addressed with insulin subcutaneously. Acetone negative. Blood sugar with interval improvement. Patient advised would need to follow closely with his PCP regarding some adjustment of his medications for his diabetes. Patient stable for discharge with outpatient follow-up with PCP. Discussed findings and plan with patient, who acknowledges understanding and agreement. Tess Disclaimer: Tess Disclaimer: This electronic medical record was generated, in whole or in part, using a voice recognition dictation system. Departure Departure: Impression: Primary Impression: Hyperglycemia Disposition: HOME / SELF CARE / HOMELESS Condition: STABLE Referrals: BRAXTON POP (PCP) Patient Instructions: Diabetes Meal Planning Guide, Diet - 2000 Calorie Diabe tic, Hyperglycemia, [id number] Additional Instructions: Increase fluid hydration. HEIDI RIVERA DO Oct 04, 2020 21:41
== END 2020-10-04 21:43 | disposition home or self-care (01) ==
LOC: ER 18:07
DX: E11.65 Type 2 diabetes mellitus with hyperglycemia (principal); F41.9 Anxiety disorder, unspecified; K21.9 Gastro-esophageal reflux disease without esophagitis; I10 Essential (primary) hypertension; G89.29 Other chronic pain; F17.200 Nicotine dependence, unspecified, uncomplicated; Z88.2 Allergy status to sulfonamides; Z88.5 Allergy status to narcotic agent; Z91.010 Allergy to peanuts
CPT/HCPCS: 36415; 80053; 81001; 82010; 82947; 83735; 85025; 96360; 96361; 96372; 99285; J7030

== ENCOUNTER → 2021-01-31 | Outpatient (CLI) | payer OTHER ==
[2021-01-31 14:46] LABS: BARBITURATES NEG (NEG); BENZODIAZEPINES NEG (NEG); CANNABINOIDS NEG (NEG); COCAINE NEG (NEG); METHADONE NEG (NEG); OPIATES NEG (NEG); PHENCYCLIDINE NEG (NEG)
[2021-01-31 14:59] LABS: AMPHETAMINE/METHAMPHETAMINE NEG (NEG)
== END ==
LOC: LAB 13:11
PROVIDERS: ATTEND Internal Medicine
DX: Z79.891 Long term (current) use of opiate analgesic (principal)
CPT/HCPCS: 36415; 80307

== ENCOUNTER → 2021-05-04 | Emergency (ER) | payer OTHER ==
[~2021-05-04] MED LIST changes: -CYCL-331 PO; +CYCL10TA19 PO; +DICY20TA PO; -DICY20TA3 PO
== END | disposition left against medical advice (07) ==
LOC: ER 12:15
DX: R07.9 Chest pain, unspecified (principal); R06.02 Shortness of breath; J02.9 Acute pharyngitis, unspecified; R09.81 Nasal congestion; Z53.21 Procedure and treatment not carried out due to patient leaving prior to being seen by health care provider

== ENCOUNTER → 2021-06-23 | Outpatient (CLI) | payer OTHER ==
[2021-06-23 16:07] LABS: BASO # 0.1 x10^3/uL (0.0-0.2); BASO % 1 % (0-3); EOS # 0.1 x10^3/uL (0.0-0.7); EOS % 3 % (0-3); HEMATOCRIT 44.8 % (39.0-53.0); HEMOGLOBIN 15.2 g/dL (13.0-17.5); LYMPH # 1.7 x10^3/uL (1.0-4.8); LYMPH % 33 % (24-48); MEAN CORPUSCULAR HEMOGLOBIN 30 pg (25-35); MEAN CORPUSCULAR HGB CONC 34 g/dL (31-37); MEAN CORPUSCULAR VOLUME 88 fL (79-100); MONO # 0.6 x10^3/uL (0.0-1.1); MONO % 13 % (0-9); NEUT # 2.6 x10^3uL (1.8-7.7); NEUT % 51 % (31-73); PLATELET COUNT 235 x10^3/uL (140-400); RED BLOOD COUNT 5.11 x10^6/uL (4.30-5.70); RED CELL DISTRIBUTION WIDTH 13.5 % (11.5-14.5); WHITE BLOOD COUNT 5.1 x10^3/uL (4.0-11.0)
[2021-06-23 16:27] LABS: BARBITURATES NEG (NEG); BENZODIAZEPINES NEG (NEG); CANNABINOIDS NEG (NEG); COCAINE NEG (NEG); METHADONE NEG (NEG); OPIATES NEG (NEG); PHENCYCLIDINE NEG (NEG)
[2021-06-23 16:30] LABS: ALBUMIN 3.8 g/dL (3.4-5.0); CALCIUM 9.5 mg/dL (8.5-10.1); GFR 82.3; POTASSIUM 4.5 mmol/L (3.5-5.1); TOTAL BILIRUBIN 0.2 mg/dL (0.2-1.0); TOTAL PROTEIN 7.6 g/dL (6.4-8.2)
[2021-06-23 16:44] LABS: AMPHETAMINE/METHAMPHETAMINE NEG (NEG)
[2021-06-24 07:10] LABS: HEMOGLOBIN A1C 7.5 % (4.8-5.6)
[2021-06-24 15:32] LABS: CHOLESTEROL/HDL RATIO 6.8; THYROID STIM HORMONE (TSH) 1.946 uIU/mL (0.358-3.740)
== END ==
LOC: LAB 15:08
PROVIDERS: ATTEND Internal Medicine
DX: I10 Essential (primary) hypertension (principal); E11.9 Type 2 diabetes mellitus without complications; E78.2 Mixed hyperlipidemia; E55.9 Vitamin D deficiency, unspecified; Z79.891 Long term (current) use of opiate analgesic
CPT/HCPCS: 36415; 80053; 80061; 80307; 82306; 82607; 82746; 83036; 84439; 84443; 85025